=== PATIENT | male | born 1985 | race African-American/Black ===

== ENCOUNTER 2024-12-30 10:16 | Inpatient (IN) | payer MEDICARE, MEDICAID, SELFPAY ==
[2024-12-30] VITALS (26 sets, daily range): BP systolic 78–132; BP diastolic 52–89; PULSE 63–153; RESP 14–18; TEMP 35.7–36.6; O2SAT 93–100; BMI 43.1; BMI 45.1
--- NOTE | 2024-12-30 10:20 | EKG12_ITS ---
Test Reason : Blood Pressure : */* mmHG Vent. Rate : 118 BPM Atrial Rate : 118 BPM P-R Int : 166 ms QRS Dur : 88 ms QT Int : 336 ms P-R-T Axes : 65 65 65 degrees QTcB Int : 470 ms Sinus tachycardia Otherwise normal ECG Confirmed by Adrian Singh ([id number]), pictures editor AD CONNELLY ([id number]) on 12/31/2024 7:54:53 AM Referred By: MATEUS Confirmed By: Adrian Singh
--- NOTE | 2024-12-30 10:20 | RAD_ITS ---
EXAM: XR Chest, 1 View CLINICAL INDICATION: INTUBATION TECHNIQUE: Frontal view of the chest. COMPARISON: No relevant prior studies available. FINDINGS: LUNGS AND PLEURAL SPACES: See below. HEART: Cardiomegaly with mild congestion. MEDIASTINUM: Unremarkable. Normal mediastinal contour. BONES/JOINTS: Unremarkable. No acute fracture. TUBES, LINES AND DEVICES: The endotracheal tube (ETT) is in satisfactory position. Enteric tube tip in the stomach. RAD/Chest 1 View (Portable) IMPRESSION: Cardiomegaly with mild congestion. Reading [facility]
[2024-12-30] MEDS: Etomidate 20 MG/10 ML Vial IV (10:27)
[2024-12-30] MEDS: Succinylcholine Chloride 200 MG/10 ML Vial 100 MG IV (10:28)
--- NOTE | 2024-12-30 10:31 | EDS_ITS ---
HPI History of Present Illness Chief Complaint: Allergic Reaction Detail of Chief Complaint: Angioedema Informant: legal guardian Onset/Context/Timing Onset: Yesterday (Question of slight swelling lower lip yesterday) Context: Sudden Onset (Acutely worse this morning after taking lisinopril.) Timing: Continuous Quality: Angioedema, change in voice, drooling Location: Lips, tongue and uvula/soft palate Current Severity: Severe Maximum Severity: Severe Worsened by: Lisinopril Relieved by: Nothing Associated Symptoms Associated Symptoms: Dysphonia, reported drooling Narrative Narrative: Patient is a 39-year-old male. He has history of type 2 diabetes without insulin and hypertension. He is on lisinopril. He has had change in voice, reported drooling. He abruptly got worse after receiving lisinopril this morning at breakfast. Aide is with him. He has no other complaints. He has no reported allergies. Prior similar symptoms: No Recent Illness/Hospitalization: [facility] [place] [place] Medical History (Updated 12/30/24 @ 12:[address] Dustin Maguire, DO) Schizoaffective disorder, bipolar type Conduct disorder Mood disorder Major depressive disorder Schizophrenia Dementia Vitamin D deficiency Impulse disorder Intermittent explosive disorder Hyperprolactinemia Hyperlipidemia GERD with stricture without esophagitis Anemia Hypertension Asthma Dysphagia Hypothyroidism Irritable bowel Elevated blood pressure reading with diagnosis of hypertension Type 2 diabetes mellitus without complication, with no history of insulin use Home Medications ?Medication ?Instructions ?Recorded ?Last Taken ?Type acetaminophen 325 mg tablet 650 mg PO Q4H PRN fever or pain 12/30/24 Unknown History albuterol sulfate 90 mcg/actuation 1 inh inhalation Q6 H PRN shortness 12/30/24 Unknown History breath activated powder inhaler of breath aspirin 81 mg chewable tablet 1 tab PO DAILY HYPERTENS ION 12/30/24 Unknown History atorvastatin 40 mg tablet 40 mg PO QHS CHOLESTROL 04/0 11/24 Unknown History benztropine 0.5 mg tablet 0.5 mg PO DAILY MOVEMENT DIS ORDER 12/30/24 Unknown History bisacodyl 5 mg tablet,delayed 10 mg PO Q12H PRN consti pation 12/30/24 Unknown History release (Alophen (bisacodyl)) calcium carbonate (Calcium 500) 1,000 mg PO Q4H PRN ac id reflux 12/30/24 Unknown History cholecalciferol (vitamin D3) 125 125 mcg PO DAILY SUPP LEMENT 12/30/24 Unknown History mcg (5,000 unit) capsule cimetidine 200 mg tablet 400 mg PO BID SEXUAL BEHAVIO R 12/30/24 Unknown History divalproex 250 mg tablet,delayed 250 mg PO TID MOOD Unknown History release (Depakote) fluticasone furoate 100 1 inh inhalation DAILY ASTHM A 12/30/24 Unknown History mcg-vilanterol 25 mcg/dose inhalation powder (Breo Ellipta) glucagon 1 mg/0.2 mL subcutaneous 1 mg subcut PRN HYPO GLYCEMIA 12/30/24 Unknown History auto-injector haloperidol 10 mg tablet 10 mg PO QHS SHIZOPHRENIA Unknown History haloperidol decanoate 100 mg/mL 200 mg IM DAILY SCHIZO PHRENIA 12/30/24 Unknown History intramuscular solution (Haldol Decanoate) insulin degludec 200 unit/mL (3 25 unit subcut QHS ALYSSA BETES 12/30/24 Unknown History mL) subcutaneous pen (Tresiba FlexTouch U-200 insulin) levothyroxine 75 mcg tablet 75 mcg PO DAILY HYPOTHYROI DISM 12/30/24 Unknown History (Euthyrox) lisinopril 2.5 mg tablet 2.5 mg PO DAILY HYPERTENSION 12/30/24 Unknown History lorazepam 1 mg tablet (Ativan) 1 mg PO TID MOOD Unknown History lorazepam 2 mg tablet (Ativan) 2 mg PO Q12H PRN agitat ion 12/30/24 Unknown History lorazepam 2 mg/mL injection 1 mg IM Q12H PRN agitation 12/30/24 Unknown History solution medroxyprogesterone 10 mg tablet 10 mg PO DAILY Unknown History (Provera) metformin 1,000 mg tablet 1,000 mg PO BID DIABETES 11/24 Unknown History olanzapine 7.5 mg tablet 7.5 mg PO QHS SCHIZOPHRENIA 12/30/24 Unknown History oxcarbazepine 150 mg tablet 300 mg PO BID BIPOLAR 11/24 Unknown History (Trileptal) semaglutide 2 mg/dose (8 mg/3 mL) 2 mg subcut QWEEK Unknown History subcutaneous pen injector (Ozempic) sertraline 100 mg tablet 200 mg PO DAILY DEPRESSION 0 12/30/24 Unknown History sodium chloride 0.65 % nasal spray 2 spray intranasal Q4H PRN nasal 12/30/24 Unknown History aerosol (Children's Saline Nasal congestion [place]) tuberculin PPD 5 tub. unit/0.1 mL 0.1 ml intradermal . COMPLEX TB 12/30/24 Unknown History intradermal injection solution (Aplisol) ziprasidone HCl 20 mg capsule 20 mg PO Q12H PRN agitat ion 12/30/24 Unknown History (Geodon) Allergy/AdvReac Type Severity Reaction Status Date / Time LUPE Inhibitors Allergy Severe Angioedema Verified 12/30/24 10:34 Family History unable to obtain Surgical History unable to obtain Social History (Updated 12/30/24 @ 10:[address] Chase Torrez MD) housing: other details: snf Smoking Status: Unknown if ever smoked ROS ROS ED Review of Systems ROS Unobtainable: other Details: History limited due to severity of reaction. EXAM Physical Exam Const Vital Signs: 12/30/24 10:20 12/30/24 10:26 12/30/24 10:32 Temperature Temperature Source Pulse Rate 153 H Respiratory Rate 14 Respiratory Depth Normal Respiratory Pattern Normal Blood Pressure Blood Pressure Mean Pulse Ox 100 Oxygen Delivery Method Ambu-Bag Fraction of Inspired Oxygen (FIO2) 40 12/30/24 10:43 12/30/24 10:53 12/30/24 11:16 Temperature 96.2 F L Temperature Source Core Pulse Rate 117 H 87 Respiratory Rate 16 18 Respiratory Depth Respiratory Pattern Normal Blood Pressure 132/89 H Blood Pressure Mean 103 Pulse Ox 95 100 Oxygen Delivery Method Mechanical Ventilator Fraction of Inspired Oxygen (FIO2) 40 12/30/24 11:23 Temperature 96.2 F L Temperature Source Pulse Rate 90 Respiratory Rate 14 Respiratory Depth Respiratory Pattern Blood Pressure 117/88 H Blood Pressure Mean 97 Pulse Ox 99 Oxygen Delivery Method Fraction of Inspired Oxygen (FIO2) Positive well nourished, well developed and obese Constitutional Narrative: Dysphonia, angioedema involving lips, tongue soft palate General Appearance ED: well developed; Negative for cyanotic, diaphoretic or pallor Nutritional Appearance: obese HEENT Reports moist mucous membranes HEENT Narrative: Uvula and soft palate is swollen.. Patient has a Mallampati score of 4 Eyes PERRL and EOMs intact bilaterally General Eye ED: Negative for pale conjunctiva or scleral icterus Neck no lymphadenopathy, supple and no JVD Neck Narrative: Abnormal sounds noted with inspiration. Not true stridor. Chest Wall inspection of chest normal Resp normal respiratory effort and clear to auscultation bilaterally Cardio regular rhythm, S1 normal heart sound, S2 normal heart sound and no murmurs Rate: tachycardic GI normal to inspection, nondistended, normoactive bowel sounds, non-tender and non-distended; Negative for hepatosplenomegaly or no masses Back/Spine no CVA tenderness Extremity General Extremety ED: Yes edema General Extremity: edema Neuro oriented x3 Neuro Narrative: Patient is calm. Sensorium / Orientation: alert Psych mental status grossly normal Skin no rashes or lesions noted, no wounds and skin turgor normal General Skin Exam: elasticity normal; Negative for jaundice or pallor MDM MDM MDM Narrative Medical decision making narrative: Patient with angioedema due to LUPE inhibitor, lisinopril. Patient was prepped for intubation by RSI technique. He was placed on percent nonrebreather. Difficult airway cart was brought into the room. Patient received 20 of etomidate. Attempt to intubate was not attempted because patient's jaw was clenched. He received 100 mg of succinylcholine. He was easily orotracheally intubated. There was no swelling of the epiglottis or aryepiglottic folds etc. Patient was placed on ventilator. He was started on a propofol and fentanyl drip. Once x-ray and EKG has been performed we will contact hospitalist for admission to ICU. Lab Data Lab results narrative: Labs are are pending at the time of admission. Labs: Laboratory Results - last 24 hr 12/30/24 11:15 WBC 6.4 RBC 3.84 L Hgb 10.3 L Hct 30.9 L MCV 80.5 MCH 26.8 L MCHC 33.3 RDW Std Deviation 43.1 RDW Coeff of Jeronimo 14.7 H Plt Count 396 MPV 8.4 Immature Gran % (Auto) 0.600 Neut % (Auto) 55.3 Lymph % (Auto) 29.2 [place] % (Auto) 11.0 H Eos % (Auto) 3.6 Baso % (Auto) 0.3 Absolute Neuts (auto) 3.5 Absolute Lymphs (auto) 1.86 Nucleated RBC % 0 Sodium 131 L Potassium 4.4 Chloride 93 L Carbon Dioxide 25.8 Anion Gap 12 BUN 8 Creatinine 0.65 L Estim Creat Clear Calc 185.05 Est GFR (MDRD) Non-Af 122 BUN/Creatinine Ratio 12.6 Glucose 90 Lactic Acid 2.4 H* Calcium 9.1 Total Bilirubin 0.16 AST 22 ALT 19 Alkaline Phosphatase 115 Total Creatine Kinase 268 H Total Protein 6.9 Albumin 3.6 Globulin 3.3 Albumin/Globulin Ratio 1.1 Triglycerides 106 Radiography Chest X-Ray - ED: 1 View and Read by ED Physician (Single view portable chest x- ray was obtained. Endotracheal tube is 1.5 to 2 cm above the thomas. OG tube is in proper position. There is no need for KUB. This is pending reviewed interpreted by me at 1050. There is no evidence of infiltrate or any acute pulmonary pathology. The film is slight) Diagnostic Testing: Clinical Impression(s) from Imaging Studies Chest X-Ray 12/30/24 10:20 IMPRESSION: Cardiomegaly with mild congestion. Reading Location: [facility] Rhythm Strip Rhythm Strip: Sinus Tach Rate: 128 Ectopy: None EKG Initial EKG: Attestation: I personally reviewed and interpreted this EKG as follows: Interpretation: Sinus Tachycardia (Rate is 118. EKG is otherwise normal. MO interval 266 ms. Cures duration 88 ms. QT duration 236 ms. [place] is normal.) Management Discussion w/another healthcare provider: Hospitalist (Spoke with Dr. Cornelius of the hospitalist. He is made aware of patient's history physical and reason for intubation. Patient be admitted to ICU) and Rehabilitation Team Lead ([employer] Ranger Technician Dr. Maguire did see patient in the emergency department.) Treatment and Re-Evaluation :: I was asked to come back to the room. Patient was vomiting. He did not aspirate. Nurse will place orogastric tube. He was given an additional 40 mg of propofol and chemically paralyzed with rocuronium until we have him properly sedated since he is not properly sedated. The fentanyl drip has not been started. Procedures Intubations Intubation Method: orotracheal Intubation Verification: Positive color change Intubation Complications: no complications Critical Care Time Critical Care Time: Yes Critical care time (excluding procedures): 30-74 minutes (31), Including time spent: (History, physical, documentation, spoke with licensed nurse practitioner who accompanied him. 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
[2024-12-30] MEDS: Propofol 200 MG/20 ML Vial IV BOLUS (10:35)
--- NOTE | 2024-12-30 10:35 | ED.RN ---
Patient attempting to pull at lines.
--- NOTE | 2024-12-30 10:36 | ED.RN ---
bilateral soft restraints applied due to patient attempting to pull at lines. Dr. Torrez notified
[2024-12-30] MEDS: Propofol 10MG/Ml 1,000 MG/100 ML Bottle 7.4 MG CONT INF (10:37)
[2024-12-30] MEDS: Rocuronium Bromide 50 MG/5 ML Vial 100 MG IV (10:50)
[2024-12-30 11:38] LABS: Absolute Lymphocyte Count 1.86 X10^3/uL (0.83-4.51); Absolute Neutrophil Count 3.5 X10^3/uL (2.0-7.7); Basophil# 0.02 X10^3/uL; Basophil% 0.3 % (0-1); Eosinophil# 0.23 X10^3/uL; Eosinophils% 3.6 % (0-5); Hematocrit 30.9 % (40-54); Hemoglobin 10.3 g/dL (13.0-16.5); Lymphocyte # 1.86 X10^3/ul (0.83-4.51); Lymphocyte % 29.2 % (19-41); Mean Corp Hgb Conc 33.3 g/dL (32-36); Mean Corpuscular Hgb 26.8 pg (27.0-32.0); Mean Corpuscular Volume 80.5 fL (80-94); Mean Platelet Vol. 8.4 fl (6.2-12.0); NRBC Flagged by Analyzer 0 % (0-5); Neutrophil # 3.51 X10^3/uL (2.7-7.7); Neutrophil % 55.3 % (47-70); Platelet Count 396 K/mm3 (150-450); RBC Distribution Width CV 14.7 % (11.6-14.6); RBC Distribution Width SD 43.1 fl (35.1-43.9); Red Blood Count 3.84 M/mm3 (4.6-6.2); White Blood Count 6.4 K/mm3 (4.4-11.0)
--- NOTE | 2024-12-30 11:43 | PCM.HP.STD ---
HPI - General General Date of Admission: 12/30/24 Date of Service: 12/30/24 Chief Complaint: Angioedema HPI Narrative ROSENDO MADDEN, is a 39 M with multiple comorbidities including hypertension, diabetes mellitus type 2, morbid obesity with BMI of 43.1 resident seen rust who was brought to the emergency department on account of Lip and facial swelling. Patient symptoms started after taking lisinopril on the morning of his admission. Patient subsequently developed sudden onset of lip and facial pain. The EMS squad was called and patient was transported to the emergency department. Patient apparently did not complain of any shortness of breath and route to the ED however symptoms worsened further in the ED with impending compromise of his airway necessitating patient being intubated. Decision was subsequently made to transfer patient to the intensive care unit following his intubation. [facility] Medical History (Updated 12/30/24 @ 12:[address] Dustin Maguire, DO) Schizoaffective disorder, bipolar type Conduct disorder Mood disorder Major depressive disorder Schizophrenia Dementia Vitamin D deficiency Impulse disorder Intermittent explosive disorder Hyperprolactinemia Hyperlipidemia GERD with stricture without esophagitis Anemia Hypertension Asthma Dysphagia Hypothyroidism Irritable bowel Elevated blood pressure reading with diagnosis of hypertension Type 2 diabetes mellitus without complication, with no history of insulin use Home Medications ?Medication ?Instructions ?Recorded ?Last Taken ?Type acetaminophen 325 mg tablet 650 mg PO Q4H PRN fever or pain 12/30/24 Unknown History albuterol sulfate 90 mcg/actuation 1 inh inhalation Q6H PRN shortness 12/30/24 Unknown History breath activated powder inhaler of breath aspirin 81 mg chewable tablet 1 tab PO DAILY HYPERTENSION 12/30/24 Unknown History atorvastatin 40 mg tablet 40 mg PO QHS CHOLESTROL 12/30/24 Unknown History benztropine 0.5 mg tablet 0.5 mg PO DAILY MOVEMENT DISORDER 12/30/24 Unknown History bisacodyl 5 mg tablet,delayed 10 mg PO Q12H PRN constipation 12/30/24 Unknown History release (Alophen (bisacodyl)) calcium carbonate (Calcium 500) 1,000 mg PO Q4H PRN acid reflux 12/30/24 Unknown History cholecalciferol (vitamin D3) 125 125 mcg PO DAILY SUPPLEMENT 12/30/24 Unknown History mcg (5,000 unit) capsule cimetidine 200 mg tablet 400 mg PO BID SEXUAL BEHAVIOR 12/30/24 Unknown History divalproex 250 mg tablet,delayed 250 mg PO TID MOOD 12/30/24 Unknown History release (Depakote) fluticasone furoate 100 1 inh inhalation DAILY ASTHMA 12/30/24 Unknown History mcg-vilanterol 25 mcg/dose inhalation powder (Breo Ellipta) glucagon 1 mg/0.2 mL subcutaneous 1 mg subcut PRN HYPOGLYCEMIA 12/30/24 Unknown History auto-injector haloperidol 10 mg tablet 10 mg PO QHS SHIZOPHRENIA 12/30/24 Unknown History haloperidol decanoate 100 mg/mL 200 mg IM DAILY SCHIZOPHRENIA 12/30/24 Unknown History intramuscular solution (Haldol Decanoate) insulin degludec 200 unit/mL (3 25 unit subcut QHS DIABETES 12/30/24 Unknown History mL) subcutaneous pen (Tresiba FlexTouch U-200 insulin) levothyroxine 75 mcg tablet 75 mcg PO DAILY HYPOTHYROIDISM 12/30/24 Unknown History (Euthyrox) lisinopril 2.5 mg tablet 2.5 mg PO DAILY HYPERTENSION 12/30/24 Unknown History lorazepam 1 mg tablet (Ativan) 1 mg PO TID MOOD 12/30/24 Unknown History lorazepam 2 mg tablet (Ativan) 2 mg PO Q12H PRN agitation 12/30/24 Unknown History lorazepam 2 mg/mL injection 1 mg IM Q12H PRN agitation 12/30/24 Unknown History solution medroxyprogesterone 10 mg tablet 10 mg PO DAILY 12/30/24 Unknown History (Provera) metformin 1,000 mg tablet 1,000 mg PO BID DIABETES 12/30/24 Unknown History olanzapine 7.5 mg tablet 7.5 mg PO QHS SCHIZOPHRENIA 12/30/24 Unknown History oxcarbazepine 150 mg tablet 300 mg PO BID BIPOLAR 12/30/24 Unknown History (Trileptal) semaglutide 2 mg/dose (8 mg/3 mL) 2 mg subcut QWEEK 12/30/24 Unknown History subcutaneous pen injector (Ozempic) sertraline 100 mg tablet 200 mg PO DAILY DEPRESSION 12/30/24 Unknown History sodium chloride 0.65 % nasal spray 2 spray intranasal Q4H PRN nasal 12/30/24 Unknown History aerosol (Children's Saline Nasal congestion [place]) tuberculin PPD 5 tub. unit/0.1 mL 0.1 ml intradermal .COMPLEX TB 12/30/24 Unknown History intradermal injection solution (Aplisol) ziprasidone HCl 20 mg capsule 20 mg PO Q12H PRN agitation 12/30/24 Unknown History (Geodon) Allergy/AdvReac Type Severity Reaction Status Date / Time LUPE Inhibitors Allergy Severe Angioedema Verified 12/30/24 10:34 Family History unable to obtain Surgical History unable to obtain Social History (Updated 12/30/24 @ 10:[address] Chase Torrez MD) housing: other details: long-term Smoking Status: Unknown if ever smoked ROS ROS Narrative Unable to obtain since patient is on the vent Vital Signs Vital Signs Vital Signs: 12/30/24 10:20 12/30/24 10:26 12/30/24 10:32 Temperature Temperature Source Pulse Rate 153 H Respiratory Rate 14 Respiratory Depth Normal Respiratory Pattern Normal Blood Pressure Blood Pressure Mean Pulse Ox 100 Oxygen Delivery Method Ambu-Bag Fraction of Inspired Oxygen (FIO2) 40 12/30/24 10:43 12/30/24 10:53 12/30/24 11:23 Temperature 96.2 F L 96.2 F L Temperature Source Core Pulse Rate 117 H 90 Respiratory Rate 16 14 Respiratory Depth Respiratory Pattern Normal Blood Pressure 117/88 H Blood Pressure Mean 97 Pulse Ox 95 99 Oxygen Delivery Method Fraction of Inspired Oxygen (FIO2) 40 Weight Weight: 123 kg Body Mass Index (BMI) 43.1 Physical Exam Narrative GENERAL: Patient intubated HEENT: Significant swelling of the face and the lips EYES; Anicteric, Normal Conjunctiva NECK; supple, normal thyroid, RESPIRATORY: Diminished to auscultation CARDIOVASCULAR: Regular S1 S2, GI: soft, normoactive bowel sounds, : No Renal angle tenderness; EXTREMITIES: No edema, no clubbing, MUSCULOSKELETAL: no muscle wasting NEURO: Unable to assess patient underwent SKIN: No Rash PSYCH; patient sedated on the [facility] Results Lab / Micro Data 12/30/24 11:15 12/30/24 11:15 Labs: Laboratory Results - last 24 hr 12/30/24 11:15: WBC 6.4, RBC 3.84 L, Hgb 10.3 L, Hct 30.9 L, MCV 80.5, MCH 26.8 L, MCHC 33.3, RDW Std Deviation 43.1, RDW Coeff of Jeronimo 14.7 H, Plt Count 396, MPV 8.4, Immature Gran % (Auto) 0.600, Neut % (Auto) 55.3, Lymph % (Auto) 29.2, [place] % (Auto) 11.0 H, Eos % (Auto) 3.6, Baso % (Auto) 0.3, Absolute Neuts (auto) 3.5, Absolute Lymphs (auto) 1.86, Nucleated RBC % 0 Rhythm Strip Rhythm Strip: Sinus Tach Rate: 128 Ectopy: None Imaging Radiology Impression Chest X-Ray 12/30/24 10:20 IMPRESSION: Cardiomegaly with mild congestion. Reading Location: [facility] Assessment & Plan Assessment/Plan (1) Angioedema due to angiotensin converting enzyme inhibitor (LUPE-I): PLAN: Plan Patient is a 39-year-old gentleman presented with significant swelling involving the face and lips after taking lisinopril and assessment of angioedema with impending airway failure made patient electively intubated in the emergency department admitted to the intensive care unit for further management 1. Angioedema ? Secondary to LUPE inhibitors. Patient was intubated in the emergency department as a result of impending airway failure. No offending medications discontinued patient started on H2 blockers as well as Solu-Medrol admitted to the intensive care unit. Initial vent settings written consult placed to online program coordinator?Dr Marie case discussed with him 2. Essential hypertension ? Patient was on lisinopril discontinued given the above 3. Schizoaffective disorder ? Plan is to resume patient psychotropic medications once weaned off the vent 4. Class III obesity with BMI of 43.1 complicating care 5. Diabetes mellitus type 2 ? Held patient oral hypoglycemic agents patient is on long-acting insulin. Plan is to continue with sliding scale coverage following med reconciliation 6. Mild intermittent asthma ? Not in exacerbation aerosol treatment as needed 7. Hypothyroidism ? Patient is on levothyroxine home dose continued 8. DVT prophylaxis ? On enoxaparin Time spent in the patient's overall evaluation,decision-making process, review of diagnostic data, adjustment of management, discussion with other providers, nursing nursing and ancillary staff involved in patient's care documentation, 75 Minutes Charges/Coding Visit Charges Inpatient E&M: 85000 Init Hosp L3
[2024-12-30 11:47] LABS: CPK Total, Creatine Kinase 268 U/L (24-195); Triglycerides 106 mg/dL
[2024-12-30 11:48] LABS: ALB/GLOB Ratio 1.1 RATIO (0.9-2.4); AST(SGOT) 22 U/L (<=37); Alanine Aminotransfer ALT/SGPT 19 U/L (<=46); Albumin, Serum 3.6 g/dL (3.5-5.0); Alkaline Phosphatase 115 U/L (40-129); Anion Gap 12 (5-15); BUN 8 mg/dL (4-19); BUN/Creat Ratio 12.6 RATIO (10-20); Calcium,Total 9.1 mg/dL (7.6-11.0); Carbon Dioxide 25.8 mmol/L (21.0-32.0); Chloride 93 mmol/L (98-108); Creatinine, Serum 0.65 mg/dL (0.70-1.20); EST Glomerular Filtration Rate 122 (>60); Estimated Creatinine Clearance 185.05 ml/min (50-250); Globulin 3.3 g/dL (2.2-4.2); Glucose 90 mg/dL (70-99); Potassium 4.4 mmol/L (3.3-5.1); Protein, Total 6.9 g/dL (5.9-8.4); Sodium Level 131 mmol/L (133-145); Total Bilirubin 0.16 mg/dL (0.00-1.30)
[2024-12-30] MEDS: fentaNYL drip 100 ML 2.5 MCG CONT INF (12:05)
--- NOTE | 2024-12-30 12:23 | EX.PCM.CONCC ---
Assessment & Plan Assessment/Plan (1) Angioedema due to angiotensin converting enzyme inhibitor (LUPE-I): PLAN: Plan RECOMMENDATIONS: 1. Continue assist-control mode of mechanical ventilation. Wean FiO2 and PEEP as tolerated. 2. Obtain ABG and sputum culture. 3. Initiate Pepcid and corticosteroids. 4. Propofol and fentanyl for sedation. 5. As needed bronchodilator therapy. 6. Lovenox for DVT prophylaxis. IMPRESSIONS: 1. Acute respiratory failure related to LUPE inhibitor induced angioedema The patient was ultimately intubated in the emergency department over concerns for impending respiratory failure and airway compromise. He will be continued on assist-control mode of mechanical ventilation, with a goal to wean FiO2 and PEEP to maintain saturations at or above 90%. Will plan to obtain arterial blood gas and send sputum for culture. The patient will be maintained on Pepcid and IV steroids as ordered. Once the patient's edema has satisfactorily improved, will initiate weaning from invasive mechanical ventilatory support. 2. History of hypertension/hypothyroidism/diabetes mellitus/asthma/schizoaffective disorder Complicates care, management, recovery and prognosis. Recommend starting as needed bronchodilator therapy along with sliding scale insulin coverage. Tube feeding will be initiated tomorrow for nutritional support, if the patient remains intubated and mechanically ventilated. TIME: 37 minutes of critical care time, independent of procedures, was spent addressing the patient's acute respiratory failure related to LUPE inhibitor induced angioedema, review of all data and collaboration with the care team. HPI Consult Data Date of Consult: 12/30/24 HPI Narrative Reason for Consultation: Acute respiratory failure secondary to angioedema HPI Narrative: The patient is a 39-year-old male, with a history as outlined below, who presented to the emergency department via EMS on December 30 from [facility] after developing facial swelling, in the setting of LUPE inhibitor utilization. History pertinent to the patient's hospitalization was obtained primarily via chart review, as the patient is currently intubated and mechanically ventilated. The patient has a medical history that includes hypothyroidism, asthma, hypertension, diabetes mellitus and schizoaffective disorder. The patient, however, has apparently been on lisinopril for quite some time. On presentation to the emergency department, the patient was documented to be afebrile and hemodynamically stable. Laboratory evaluation revealed a normal white blood cell count with a hemoglobin of 10.3 g/dL and normal platelet count. Creatinine was within normal limits. Lactate was mildly elevated at 2.3. The patient's oropharyngeal edema apparently progressed while he was in the emergency department, raising the concern for airway protection. Therefore, the patient was intubated without complication. The patient was subsequently transferred to the medical intensive care unit for further management. [facility] Medical History (Updated 12/30/24 @ 12:[address] Dustin Maguire, DO) Schizoaffective disorder, bipolar type Conduct disorder Mood disorder Major depressive disorder Schizophrenia Dementia Vitamin D deficiency Impulse disorder Intermittent explosive disorder Hyperprolactinemia Hyperlipidemia GERD with stricture without esophagitis Anemia Hypertension Asthma Dysphagia Hypothyroidism Irritable bowel Elevated blood pressure reading with diagnosis of hypertension Type 2 diabetes mellitus without complication, with no history of insulin use Medical History unable to obtain Home Medications ?Medication ?Instructions ?Recorded ?Last Taken ?Type acetaminophen 325 mg tablet 650 mg PO Q4H PRN fever or pain 12/30/24 Unknown History albuterol sulfate 90 mcg/actuation 1 inh inhalation Q6H PRN shortness 12/30/24 Unknown History breath activated powder inhaler of breath aspirin 81 mg chewable tablet 1 tab PO DAILY HYPERTENSION 12/30/24 Unknown History atorvastatin 40 mg tablet 40 mg PO QHS CHOLESTROL 12/30/24 Unknown History benztropine 0.5 mg tablet 0.5 mg PO DAILY MOVEMENT DISORDER 12/30/24 Unknown History bisacodyl 5 mg tablet,delayed 10 mg PO Q12H PRN constipation 12/30/24 Unknown History release (Alophen (bisacodyl)) calcium carbonate (Calcium 500) 1,000 mg PO Q4H PRN acid reflux 12/30/24 Unknown History cholecalciferol (vitamin D3) 125 125 mcg PO DAILY SUPPLEMENT 12/30/24 Unknown History mcg (5,000 unit) capsule cimetidine 200 mg tablet 400 mg PO BID SEXUAL BEHAVIOR 12/30/24 Unknown History divalproex 250 mg tablet,delayed 250 mg PO TID MOOD 12/30/24 Unknown History release (Depakote) fluticasone furoate 100 1 inh inhalation DAILY ASTHMA 12/30/24 Unknown History mcg-vilanterol 25 mcg/dose inhalation powder (Breo Ellipta) glucagon 1 mg/0.2 mL subcutaneous 1 mg subcut PRN HYPOGLYCEMIA 12/30/24 Unknown History auto-injector haloperidol 10 mg tablet 10 mg PO QHS SHIZOPHRENIA 12/30/24 Unknown History haloperidol decanoate 100 mg/mL 200 mg IM DAILY SCHIZOPHRENIA 12/30/24 Unknown History intramuscular solution (Haldol Decanoate) insulin degludec 200 unit/mL (3 25 unit subcut QHS DIABETES 12/30/24 Unknown History mL) subcutaneous pen (Tresiba FlexTouch U-200 insulin) levothyroxine 75 mcg tablet 75 mcg PO DAILY HYPOTHYROIDISM 12/30/24 Unknown History (Euthyrox) lisinopril 2.5 mg tablet 2.5 mg PO DAILY HYPERTENSION 12/30/24 Unknown History lorazepam 1 mg tablet (Ativan) 1 mg PO TID MOOD 12/30/24 Unknown History lorazepam 2 mg tablet (Ativan) 2 mg PO Q12H PRN agitation 12/30/24 Unknown History lorazepam 2 mg/mL injection 1 mg IM Q12H PRN agitation 12/30/24 Unknown History solution medroxyprogesterone 10 mg tablet 10 mg PO DAILY 12/30/24 Unknown History (Provera) metformin 1,000 mg tablet 1,000 mg PO BID DIABETES 12/30/24 Unknown History olanzapine 7.5 mg tablet 7.5 mg PO QHS SCHIZOPHRENIA 12/30/24 Unknown History oxcarbazepine 150 mg tablet 300 mg PO BID BIPOLAR 12/30/24 Unknown History (Trileptal) semaglutide 2 mg/dose (8 mg/3 mL) 2 mg subcut QWEEK 12/30/24 Unknown History subcutaneous pen injector (Ozempic) sertraline 100 mg tablet 200 mg PO DAILY DEPRESSION 12/30/24 Unknown History sodium chloride 0.65 % nasal spray 2 spray intranasal Q4H PRN nasal 12/30/24 Unknown History aerosol (Children's Saline Nasal congestion [place]) tuberculin PPD 5 tub. unit/0.1 mL 0.1 ml intradermal .COMPLEX TB 12/30/24 Unknown History intradermal injection solution (Aplisol) ziprasidone HCl 20 mg capsule 20 mg PO Q12H PRN agitation 12/30/24 Unknown History (Geodon) Allergy/AdvReac Type Severity Reaction Status Date / Time LUPE Inhibitors Allergy Severe Angioedema Verified 12/30/24 10:34 Family History unable to obtain Surgical History unable to obtain Social History (Updated 12/30/24 @ 10:[address] Chase Torrez MD) housing: other details: half-way Smoking Status: Unknown if ever smoked ROS Review of Systems ROS Unobtainable: due to endotracheal tube Physical Exam Const Constitutional Narrative: Intubated, sedated and mechanically ventilated. Patient is morbidly obese. HEENT normocephalic and head/scalp atraumatic HEENT Narrative: Extensive oropharyngeal/lip edema. Mouth: endotracheal tube in place Eyes PERRL and conjunctivae normal Neck supple General: trachea midline Chest inspection of chest normal Resp no use of accessory muscles Auscultation: Negative for rales, rhonchi or wheezes Cardio regular rate and regular rhythm GI normal to inspection, nondistended, normoactive bowel sounds Extremity no clubbing, cyanosis or edema Skin no rashes or lesions noted Neuro Sensorium / Orientation: sedated on vent Lab / Micro Data 12/30/24 11:15 12/30/24 11:15 Labs: Laboratory Results - last 24 hr 12/30/24 11:15: WBC 6.4, RBC 3.84 L, Hgb 10.3 L, Hct 30.9 L, MCV 80.5, MCH 26.8 L, MCHC 33.3, RDW Std Deviation 43.1, RDW Coeff of Jeronimo 14.7 H, Plt Count 396, MPV 8.4, Immature Gran % (Auto) 0.600, Neut % (Auto) 55.3, Lymph % (Auto) 29.2, [place] % (Auto) 11.0 H, Eos % (Auto) 3.6, Baso % (Auto) 0.3, Absolute Neuts (auto) 3.5, Absolute Lymphs (auto) 1.86, Nucleated RBC % 0, Sodium 131 L, Potassium 4.4, Chloride 93 L, Carbon Dioxide 25.8, Anion Gap 12, BUN 8, Creatinine 0.65 L, Estim Creat Clear Calc 185.05, Est GFR (MDRD) Non-Af 122, BUN/Creatinine Ratio 12.6, Glucose 90, Lactic Acid 2.3 H*, Calcium 9.1, Total Bilirubin 0.16, AST 22, ALT 19, Alkaline Phosphatase 115, Total Creatine Kinase 268 H, Total Protein 6.9, Albumin 3.6, Globulin 3.3, Albumin/Globulin Ratio 1.1, Triglycerides 106 Rhythm Strip Rhythm Strip: Sinus Tach Rate: 128 Ectopy: None Imaging Radiology Impression Chest X-Ray 12/30/24 10:20 IMPRESSION: Cardiomegaly with mild congestion. Reading [facility] Charges/Coding Procedures Hospitalists Procedures: [id number] Critical Care 1st Hr
[2024-12-30 12:33] LABS: Lactic Acid 2.4 mmol/L (0.0-2.0)
[2024-12-30 13:31] LABS: Allen Test Positive; Base Excess 4 mmol/L (-2 to +2); Bicarbonate 27.2 mmol/L (22-26); Blood Gas Specimen Type ART; Mode AC; O2 Delivery Device Adult Vent; PEEP 5; PO2 67 mmHG (75-100); RR 14; SITE L Radial; SO2 94 % (95-99); Total Carbon Dioxide 28 mmol/L; pCO2 36.7 mmHg (35-45); pH 7.48 (7.35-7.45)
[2024-12-30] MEDS: 0.9% Normal Saline (1000mL) 1,000 ML 125 ML IV (13:39)
[2024-12-30] MEDS: Famotidine 200 MG/20 ML MDV 20 MG in 0.9% Normal Saline (Pres. free 8 ML 300 MG IV ×2 (13:49→21:34)
[2024-12-30] MEDS: MethylPREDNISolone 125 MG/2 ML Vial 60 MG IV ×2 (13:49→21:34)
[2024-12-30 14:02] LABS: Bedside Glucose 78 mg/dL (74-106)
[2024-12-30] MEDS: Propofol 10MG/Ml 1,000 MG/100 ML Bottle 18.5 MG CONT INF ×3 (14:58→23:55)
[2024-12-30 15:20] LABS: Reflex Lactate? Y
[2024-12-30 16:38] LABS: Lactic Acid 1.9 mmol/L (0.0-2.0)
[2024-12-30 18:45] LABS: Bedside Glucose 101 mg/dL (74-106)
[2024-12-30] MEDS: fentaNYL drip 100 ML 12.5 MCG CONT INF (20:14)
[2024-12-30] MEDS: Enoxaparin 40 MG/0.4 ML Syringe SC (21:34)
[2024-12-30] MEDS: Chlorhexidine 15 ML PO (21:34)
[2024-12-31] VITALS (32 sets, daily range): BP systolic 101–141; BP diastolic 63–93; PULSE 52–94; RESP 14–16; TEMP 35.6–36.6; O2SAT 57–100; BMI 45.7
[2024-12-31] MEDS: Propofol 10MG/Ml 1,000 MG/100 ML Bottle 29.5 MG CONT INF ×2 (03:41→06:42)
[2024-12-31] MEDS: fentaNYL drip 100 ML 15 MCG CONT INF (03:47)
[2024-12-31 04:15] LABS: Absolute Lymphocyte Count 1.43 X10^3/uL (0.83-4.51); Absolute Neutrophil Count 7.2 X10^3/uL (2.0-7.7); Basophil# 0.02 X10^3/uL; Basophil% 0.2 % (0-1); Eosinophil# 0.01 X10^3/uL; Eosinophils% 0.1 % (0-5); Hematocrit 30.1 % (40-54); Hemoglobin 10.3 g/dL (13.0-16.5); Lymphocyte # 1.43 X10^3/ul (0.83-4.51); Lymphocyte % 15.7 % (19-41); Mean Corp Hgb Conc 34.2 g/dL (32-36); Mean Corpuscular Hgb 26.7 pg (27.0-32.0); Mean Platelet Vol. 8.1 fl (6.2-12.0); Monocyte# 0.39 X10^3/uL; Monocyte% 4.3 % (0-10); NRBC Flagged by Analyzer 0 % (0-5); Neutrophil # 7.23 X10^3/uL (2.7-7.7); Neutrophil % 79.3 % (47-70); Platelet Count 370 K/mm3 (150-450); RBC Distribution Width CV 14.6 % (11.6-14.6); RBC Distribution Width SD 41.1 fl (35.1-43.9); Red Blood Count 3.86 M/mm3 (4.6-6.2); White Blood Count 9.1 K/mm3 (4.4-11.0)
[2024-12-31 05:06] LABS: Magnesium 1.6 mg/dL (1.5-2.2)
[2024-12-31 05:13] LABS: AST(SGOT) 15 U/L (<=37); Alanine Aminotransfer ALT/SGPT 13 U/L (<=46); Albumin, Serum 3.5 g/dL (3.5-5.0); Alkaline Phosphatase 109 U/L (40-129); Anion Gap 12 (5-15); BUN 11 mg/dL (4-19); Bilirubin, Direct < 0.08 mg/dL (0.00-0.30); Calcium,Total 9.1 mg/dL (7.6-11.0); Chloride 96 mmol/L (98-108); Creatinine, Serum 0.59 mg/dL (0.70-1.20); EST Glomerular Filtration Rate 125 (>60); Estimated Creatinine Clearance 209.56 ml/min (50-250); Globulin 3.2 g/dL (2.2-4.2); Glucose 103 mg/dL (70-99); Potassium 4.4 mmol/L (3.3-5.1); Protein, Total 6.7 g/dL (5.9-8.4); Sodium Level 130 mmol/L (133-145); Total Bilirubin 0.17 mg/dL (0.00-1.30)
[2024-12-31 05:26] LABS: Phosphorus 3.5 mg/dL (2.7-4.5)
[2024-12-31] MEDS: MethylPREDNISolone 125 MG/2 ML Vial 60 MG IV ×3 (05:31→22:21)
[2024-12-31] MEDS: 0.9% Normal Saline (1000mL) 1,000 ML 125 ML IV (05:31)
[2024-12-31 06:01] LABS: Bedside Glucose 83 mg/dL (74-106)
[2024-12-31 07:51] LABS: Bedside Glucose 99 mg/dL (74-106)
--- NOTE | 2024-12-31 08:08 | NURSING ---
Per Dr. Maguire increase Propofol 50mcg/kg/min and Fentanyl 200mcg/hr.
--- NOTE | 2024-12-31 08:10 | PN.CC_ITS ---
Assessment & Plan Assessment/Plan (1) Angioedema due to angiotensin converting enzyme inhibitor (LUPE-I): PLAN: Plan RECOMMENDATIONS: 1. Continue assist-control mode of mechanical ventilation. Wean FiO2 and PEEP as tolerated. 2. Continue Pepcid and corticosteroids. 3. Propofol and fentanyl for sedation. 4. Continue as needed bronchodilator therapy. 5. Lovenox for DVT prophylaxis. 6. Okay to initiate tube feeding today. 7. Proceed with spontaneous awakening and breathing trials beginning tomorrow. Check ETT cuff leak as well. IMPRESSIONS: 1. Acute respiratory failure related to LUPE inhibitor induced angioedema The patient was ultimately intubated in the emergency department over concerns for impending respiratory failure and airway compromise. The patient's oropharyngeal edema is improving with supportive care including invasive mechanical ventilatory support, Pepcid and corticosteroids. Plan to continue the aforementioned for now. Given the patient's improvement, anticipate proceeding with spontaneous awakening and breathing trial tomorrow morning. Will check endotracheal tube cuff leak as well. Okay to initiate tube feeding today. 2. History of hypertension/hypothyroidism/diabetes mellitus/asthma/schizoaffective disorder Complicates care, management, recovery and prognosis. Will plan to initiate tube feeding today. Continue sliding scale insulin coverage along with as needed bronchodilator therapy. TIME: 33 minutes of critical care time, independent of procedures, was spent addressing the patient's acute respiratory failure related to LUPE inhibitor induced angioedema, review of all data and collaboration with the care team. Subjective Subjective The patient was seen and examined at the bedside this morning. Events from the last 24 hours have been reviewed. The patient is currently afebrile, hemodynamically stable and maintaining appropriate oxygen saturations on assist- control mode mechanical ventilation with an FiO2 requirement of 21% and PEEP of 5. The patient is currently sedated on a combination of propofol and fentanyl. No overnight issues were identified by the nursing staff. White blood cell count is normal. Creatinine is within normal limits. The patient remains on Pepcid and corticosteroids. Objective Data Objective Data The patient's most recent lab work, culture data and imaging studies have all been personally reviewed. Vital Signs: Vital Signs Temp Pulse Resp BP Pulse Ox O2 Del Method FiO2 97.5 F L 62 14 123/86 H 92 Mechanical Ventilator 21 12/31/24 04:00 12/31/24 07:24 12/31/24 07:24 12/31/24 07:00 12/31/24 07:24 12/31/24 07:00 12/31/24 07:24 Oxygen Delivery Method Mechanical Ventilator Weight: 287 lb 14.779 oz Body Mass Index (BMI) 45.7 Intake & Output: Intake and Output for Last 24 Hours 12/29/24 12/30/24 12/31/24 23:59 23:59 23:59 Intake Total 1376.06 / 1390.10 311.51 / 311.51 Output Total 800 / 800 Balance 1376.06 / 1390.10 -488.49 / -488.49 Lab / Micro Data Attestation: I reviewed the patient's lab results. 12/31/24 04:07 12/31/24 04:07 Labs: Laboratory Results - last 24 hr 12/30/24 11:15: WBC 6.4, RBC 3.84 L, Hgb 10.3 L, Hct 30.9 L, MCV 80.5, MCH 26.8 L, MCHC 33.3, RDW Std Deviation 43.1, RDW Coeff of Jeronimo 14.7 H, Plt Count 396, MPV 8.4, Immature Gran % (Auto) 0.600, Neut % (Auto) 55.3, Lymph % (Auto) 29.2, [place] % (Auto) 11.0 H, Eos % (Auto) 3.6, Baso % (Auto) 0.3, Absolute Neuts (auto) 3.5, Absolute Lymphs (auto) 1.86, Nucleated RBC % 0, Sodium 131 L, Potassium 4.4, Chloride 93 L, Carbon Dioxide 25.8, Anion Gap 12, BUN 8, Creatinine 0.65 L, Estim Creat Clear Calc 185.05, Est GFR (MDRD) Non-Af 122, BUN/Creatinine Ratio 12.6, Glucose 90, Lactic Acid 2.4 H*, Calcium 9.1, Total Bilirubin 0.16, AST 22, ALT 19, Alkaline Phosphatase 115, Total Creatine Kinase 268 H, Total Protein 6.9, Albumin 3.6, Globulin 3.3, Albumin/Globulin Ratio 1.1, Triglycerides 106 12/30/24 13:45: POC Glucose 78 12/30/24 15:28: Lactic Acid 1.9 12/30/24 18:26: POC Glucose 101 12/31/24 00:06: POC Glucose 99 12/31/24 04:07: WBC 9.1, RBC 3.86 L, Hgb 10.3 L, Hct 30.1 L, MCV 78.0 L, MCH 26.7 L, MCHC 34.2, RDW Std Deviation 41.1, RDW Coeff of Jeronimo 14.6, Plt Count 370, MPV 8.1, Immature Gran % (Auto) 0.400, Neut % (Auto) 79.3 H, Lymph % (Auto) 15.7 L, [place] % (Auto) 4.3, Eos % (Auto) 0.1, Baso % (Auto) 0.2, Absolute Neuts (auto) 7.2, Absolute Lymphs (auto) 1.43, Nucleated RBC % 0, Sodium 130 L, Potassium 4.4, Chloride 96 L, Carbon Dioxide 21.0, Anion Gap 12, BUN 11, Creatinine 0.59 L , Estim Creat Clear Calc 209.56, Est GFR (MDRD) Non-Af 125, BUN/Creatinine Ratio 18.0, Glucose 103 H, Calcium 9.1, Phosphorus 3.5, Magnesium 1.6, Total Bilirubin 0.17, Direct Bilirubin < 0.08, AST 15, ALT 13, Alkaline Phosphatase 109, Total Protein 6.7, Albumin 3.5, Globulin 3.2 12/31/24 05:33: POC Glucose 83 Micro: Microbiology 12/30/24 14:40 Wound - Nose Skin and Soft Tissue MRSA/MSSA (PCR - Final Staphylococcus aureus ABG Data ABG results: ABG 12/30/24 13:28 Specimen Type ART Sample Site L Radial pH 7.48 H Bicarbonate Actual 27.2 H Total CO2 28 Base Excess 4 H O2 Saturation 94 L O2 % 25.0 ABG pCO2 36.7 ABG pO2 67 L Cisco Test Positive Respiration Rate 14 O2 Delivery Device Adult Vent Vent Mode AC Tidal Volume 500.0 POC PEEP 5 Radiography Diagnostic Testing: Radiology Impression Chest X-Ray 12/30/24 10:20 IMPRESSION: Cardiomegaly with mild congestion. Reading Location: [facility] Rhythm Strip Rhythm Strip: Sinus Tach Rate: 128 Ectopy: None Physical Exam Const Constitutional Narrative: Intubated, sedated and mechanically ventilated. Patient is morbidly obese. No ventilator dyssynchrony noted. HEENT normocephalic and head/scalp atraumatic HEENT Narrative: Improving oropharyngeal edema. Mouth: endotracheal tube in place and OG tube in place Eyes PERRL and conjunctivae normal Neck supple General: trachea midline Chest inspection of chest normal Resp no use of accessory muscles Auscultation: Negative for rales, rhonchi or wheezes Cardio regular rate and regular rhythm GI normal to inspection, nondistended, normoactive bowel sounds Extremity no clubbing, cyanosis or edema Skin no rashes or lesions noted Neuro Sensorium / Orientation: sedated on vent Charges/Coding Procedures Hospitalists Procedures: [id number] Critical Care 1st Hr
--- NOTE | 2024-12-31 08:57 | PN.HOSP_ITS ---
Reason for Visit Reason for Visit: Diagnoses Adverse effect of sbjrcdkzcce-hrklbattbm-htzjek inhibitors, initial encounter (12/30/24) Angioneurotic edema, initial encounter (12/30/24) Subjective Subjective Patient is a 39-year-old gentleman presented with significant swelling involving the face and lips after taking lisinopril and assessment of angioedema with impending airway failure made patient electively intubated in the emergency department admitted to the intensive care unit for further management. Patient remains on the vent with significant decrease in his swelling Objective Data Objective Data Vital Signs: Vital Signs Temp Pulse Resp BP Pulse Ox O2 Del Method FiO2 97.7 F L 57 L 14 138/89 H 93 Mechanical Ventilator 21 12/31/24 08:00 12/31/24 08:00 12/31/24 08:00 12/31/24 08:00 12/31/24 08:00 12/31/24 08:35 12/31/24 08:35 Oxygen Delivery Method Mechanical Ventilator Weight: 130.6 kg Body Mass Index (BMI) 45.7 Intake & Output: Intake and Output for Last 24 Hours 12/29/24 12/30/24 12/31/24 23:59 23:59 23:59 Intake Total 1376.06 / 1390.10 393.70 / 393.70 Output Total 800 / 800 Balance 1376.06 / 1390.10 -406.30 / -406.30 Lab / Micro Data 12/31/24 04:07 12/31/24 04:07 Labs: Laboratory Results - last 24 hr 12/30/24 11:15: WBC 6.4, RBC 3.84 L, Hgb 10.3 L, Hct 30.9 L, MCV 80.5, MCH 26.8 L, MCHC 33.3, RDW Std Deviation 43.1, RDW Coeff of Jeronimo 14.7 H, Plt Count 396, MPV 8.4, Immature Gran % (Auto) 0.600, Neut % (Auto) 55.3, Lymph % (Auto) 29.2, [place] % (Auto) 11.0 H, Eos % (Auto) 3.6, Baso % (Auto) 0.3, Absolute Neuts (auto) 3.5, Absolute Lymphs (auto) 1.86, Nucleated RBC % 0, Sodium 131 L, Potassium 4.4, Chloride 93 L, Carbon Dioxide 25.8, Anion Gap 12, BUN 8, Creatinine 0.65 L, Estim Creat Clear Calc 185.05, Est GFR (MDRD) Non-Af 122, BUN/Creatinine Ratio 12.6, Glucose 90, Lactic Acid 2.4 H*, Calcium 9.1, Total Bilirubin 0.16, AST 22, ALT 19, Alkaline Phosphatase 115, Total Creatine Kinase 268 H, Total Protein 6.9, Albumin 3.6, Globulin 3.3, Albumin/Globulin Ratio 1.1, Triglycerides 106 12/30/24 13:45: POC Glucose 78 12/30/24 15:28: Lactic Acid 1.9 12/30/24 18:26: POC Glucose 101 12/31/24 00:06: POC Glucose 99 12/31/24 04:07: WBC 9.1, RBC 3.86 L, Hgb 10.3 L, Hct 30.1 L, MCV 78.0 L, MCH 26.7 L, MCHC 34.2, RDW Std Deviation 41.1, RDW Coeff of Jeronimo 14.6, Plt Count 370, MPV 8.1, Immature Gran % (Auto) 0.400, Neut % (Auto) 79.3 H, Lymph % (Auto) 15.7 L, [place] % (Auto) 4.3, Eos % (Auto) 0.1, Baso % (Auto) 0.2, Absolute Neuts (auto) 7.2, Absolute Lymphs (auto) 1.43, Nucleated RBC % 0, Sodium 130 L, Potassium 4.4, Chloride 96 L, Carbon Dioxide 21.0, Anion Gap 12, BUN 11, Creatinine 0.59 L , Estim Creat Clear Calc 209.56, Est GFR (MDRD) Non-Af 125, BUN/Creatinine Ratio 18.0, Glucose 103 H, Calcium 9.1, Phosphorus 3.5, Magnesium 1.6, Total Bilirubin 0.17, Direct Bilirubin < 0.08, AST 15, ALT 13, Alkaline Phosphatase 109, Total Protein 6.7, Albumin 3.5, Globulin 3.2 12/31/24 05:33: POC Glucose 83 Micro: Microbiology 12/30/24 14:40 Wound - Nose Skin and Soft Tissue MRSA/MSSA (PCR - Final Staphylococcus aureus ABG Data ABG results: ABG 12/30/24 13:28 Specimen Type ART Sample Site L Radial pH 7.48 H Bicarbonate Actual 27.2 H Total CO2 28 Base Excess 4 H O2 Saturation 94 L O2 % 25.0 ABG pCO2 36.7 ABG pO2 67 L Cisco Test Positive Respiration Rate 14 O2 Delivery Device Adult Vent Vent Mode AC Tidal Volume 500.0 POC PEEP 5 Radiography Diagnostic Testing: Radiology Impression Chest X-Ray 12/30/24 10:20 IMPRESSION: Cardiomegaly with mild congestion. Reading Location: [facility] Rhythm Strip Rhythm Strip: Sinus Tach Rate: 128 Ectopy: None Physical Exam Narrative GENERAL: Patient intubated HEENT: Significant swelling of the face and the lips EYES; Anicteric, Normal Conjunctiva NECK; supple, normal thyroid, RESPIRATORY: Diminished to auscultation CARDIOVASCULAR: Regular S1 S2, GI: soft, normoactive bowel sounds, : No Renal angle tenderness; EXTREMITIES: No edema, no clubbing, MUSCULOSKELETAL: no muscle wasting NEURO: Unable to assess patient underwent SKIN: No Rash PSYCH; patient sedated on the vent Assessment & Plan Assessment/Plan (1) Angioedema due to angiotensin converting enzyme inhibitor (LUPE-I): PLAN: Plan Patient is a 39-year-old gentleman presented with significant swelling involving the face and lips after taking lisinopril and assessment of angioedema with impending airway failure made patient electively intubated in the emergency department admitted to the intensive care unit for further management 1. Angioedema ? Secondary to LUPE inhibitors. Patient was intubated in the emergency department as a result of impending airway failure. No offending medications discontinued patient started on H2 blockers as well as Solu-Medrol admitted to the intensive care unit. Initial vent settings written consult placed to uniform force captain?Dr Maguire case discussed with him -12/31/2024; patient remains on the vent. Plan is for patient to be maintained on the vent with steroid and H2 blockers. Decision to initiate weaning deferred to uniform force captain. 2. Essential hypertension ? Patient was on lisinopril discontinued given the above 3. Schizoaffective disorder ? Plan is to resume patient psychotropic medications once weaned off the vent 4. Class III obesity with BMI of 43.1 complicating care 5. Diabetes mellitus type 2 ? Held patient oral hypoglycemic agents patient is on long-acting insulin. Plan is to continue with sliding scale coverage following med reconciliation 6. Mild intermittent asthma ? Not in exacerbation aerosol treatment as needed 7. Hypothyroidism ? Patient is on levothyroxine home dose continued 8. Anemia ? Secondary to chronic disorder monitoring H&H and transfuse if patient becomes symptomatic or hemoglobin falls below 7 9. Mild hyponatremia ? Monitoring with daily BMPs 10. DVT prophylaxis ? On enoxaparin Time spent in the patient's overall evaluation,decision-making process, review of diagnostic data, adjustment of management, discussion with other providers, nursing nursing and ancillary staff involved in patient's care documentation, 52 Minutes Charges/Coding Visit Charges Inpatient E&M: 94263 [facility] L3
--- NOTE | 2024-12-31 09:28 | CASEMGMT ---
Addendum entered by Valarie Stratton 12/31/24 10:11: Guardianship papers received and placed on pt chart. Guardian is Micaela Bennett. TAMEKA Viera Original Note: Social Work Pt is admitted from [facility]. SAMMIE called pt legal Guardian Micaela Bennett who confirmed pt will return when medically ready. SAMMIE requested Guardianship papers be sent to [facility]. DC assistant financial accountant notified to send updates to [facility]. Plan: Return to [facility] when medically ready TAMEKA Hanna
--- NOTE | 2024-12-31 09:36 | CASEMGMT ---
Addendum entered by Isi Valentine 12/31/24 10:02: Fax confirmation rec'd. Isi Valentine DC Planning Asst Original Note: Discharge Planning Updates faxed to [facility]. Isi Valentine DC Planning Asst.
[2024-12-31] MEDS: Propofol 10MG/Ml 1,000 MG/100 ML Bottle 36.9 MG CONT INF ×6 (09:39→22:29)
[2024-12-31] MEDS: fentaNYL drip 100 ML 20 MCG CONT INF ×3 (10:07→20:00)
[2024-12-31] MEDS: Famotidine 200 MG/20 ML MDV 20 MG in 0.9% Normal Saline (Pres. free 8 ML 300 MG IV ×2 (10:07→22:24)
[2024-12-31] MEDS: Chlorhexidine 15 ML PO ×2 (10:10→22:28)
[2024-12-31] MEDS: Enoxaparin 40 MG/0.4 ML Syringe SC ×2 (10:10→22:23)
[2024-12-31 11:40] LABS: Bedside Glucose 100 mg/dL (74-106)
--- NOTE | 2024-12-31 11:46 | CHAPLAIN ---
Type of Pastoral Visit ___ Initial Visit ___ Follow-up Visit ___ On-call Visit ___ General Patient Visit ___ Spiritual Assessment ___ Family Conference ___ Bereavement ___ Rapid Response ___ Code Blue ___ Other (describe below) Pastoral Care Referral From ___ Patient ___ Family ___ Nurse ___ Physician ___ Master Carpenter ___ Pressurization Mechanic ___ Other (describe below) Sacrament/Intervention ___ Active listening ___ Anointing ___ Cheondoism ___ Bereavement ___ Communion ___ Maddi exploration ___ ___ Life review ___ Prayer ___ Reconciliation ___ Sacrament of Sick ___ Supportive presence ___ Wedding ___ Other (describe below) Pastoral Comments patient is intubated and sedated; RN recommended waiting until tomorrow to visit this patient who may be extubated and alert then
[2024-12-31] MEDS: Vital High Protein 1,000 ML 15 ML GT (11:47)
[2024-12-31] MEDS: Albuterol 2.5 MG/3 ML VIAL.NEB. INHALATION (13:02)
--- NOTE | 2024-12-31 13:10 | RAD_ITS ---
PROCEDURE: CHEST 1 VIEW (PORTABLE) 12/31/2024 REASON FOR EXAM: ETT PLACEMENT TECHNIQUE: Frontal view of the chest. COMPARISON: Comparison is made with prior study dated December 30, 2024. FINDINGS: Hardware: The tip of the endotracheal tube is at 2.4 cm proximal to the thomas. EKG electrodes are seen. The orogastric tube is in good position. Heart: Cardiac and mediastinal contours are stable. Lungs: Findings suggestive of left basilar atelectasis and/or infiltrate. Bones: Degenerative changes are identified within the thoracic spine. Other: RAD/Chest 1 View (Portable) IMPRESSION: The tip of the endotracheal tube is at 2.4 cm proximal to the thomas. Orogastr ic tube is in good position. Increased markings at the left lung base suggestive of either atelectasis and/o r early infiltrate. Reading Location: [place] [id number]
[2024-12-31 18:47] LABS: Bedside Glucose 108 mg/dL (74-106)
--- NOTE | 2024-12-31 21:56 | PCM.HOSP.N ---
Hospitalist Note Patient recently started on tube feeds, having large residuals per discussion with staff, will trial scheduled Reglan to assist with gut motility
[2024-12-31] MEDS: 0.9% Saline Lock 10 ML Syringe IV (22:24)
[2024-12-31] MEDS: Metoclopramide 10 MG/2 ML Vial 5 MG IV (22:32)
[2025-01-01] VITALS (33 sets, daily range): BP systolic 101–150; BP diastolic 63–91; PULSE 57–94; RESP 14–17; TEMP 36.2–37.4; O2SAT 91–97; BMI 45.5
[2025-01-01] MEDS: Propofol 10MG/Ml 1,000 MG/100 ML Bottle 36.9 MG CONT INF ×3 (00:35→05:46)
[2025-01-01 01:59] LABS: Bedside Glucose 105 mg/dL (74-106)
[2025-01-01] MEDS: fentaNYL drip 100 ML 20 MCG CONT INF ×4 (02:00→19:23)
[2025-01-01] MEDS: MethylPREDNISolone 125 MG/2 ML Vial 60 MG IV ×3 (06:00→21:38)
[2025-01-01] MEDS: 0.9% Saline Lock 10 ML Syringe IV (06:01)
[2025-01-01] MEDS: Metoclopramide 10 MG/2 ML Vial 5 MG IV ×3 (06:03→21:43)
[2025-01-01 06:13] LABS: Absolute Lymphocyte Count 1.38 X10^3/uL (0.83-4.51); Basophil# 0.01 X10^3/uL; Basophil% 0.1 % (0-1); Hematocrit 30.2 % (40-54); Hemoglobin 10.2 g/dL (13.0-16.5); Lymphocyte # 1.38 X10^3/ul (0.83-4.51); Lymphocyte % 13.7 % (19-41); Mean Corp Hgb Conc 33.8 g/dL (32-36); Mean Corpuscular Hgb 26.9 pg (27.0-32.0); Mean Corpuscular Volume 79.7 fL (80-94); Mean Platelet Vol. 8.4 fl (6.2-12.0); Monocyte# 0.63 X10^3/uL; Monocyte% 6.3 % (0-10); NRBC Flagged by Analyzer 0 % (0-5); Neutrophil # 7.97 X10^3/uL (2.7-7.7); Neutrophil % 79.1 % (47-70); Platelet Count 420 K/mm3 (150-450); RBC Distribution Width CV 15.3 % (11.6-14.6); RBC Distribution Width SD 44.2 fl (35.1-43.9); Red Blood Count 3.79 M/mm3 (4.6-6.2); White Blood Count 10.1 K/mm3 (4.4-11.0)
[2025-01-01 06:48] LABS: Anion Gap 13 (5-15); BUN 9 mg/dL (4-19); BUN/Creat Ratio 15.7 RATIO (10-20); Calcium,Total 9.3 mg/dL (7.6-11.0); Carbon Dioxide 19.6 mmol/L (21.0-32.0); Chloride 99 mmol/L (98-108); EST Glomerular Filtration Rate 125 (>60); Estimated Creatinine Clearance 206.98 ml/min (50-250); Glucose 102 mg/dL (70-99); Potassium 4.3 mmol/L (3.3-5.1); Sodium Level 132 mmol/L (133-145)
[2025-01-01 06:51] LABS: Bedside Glucose 97 mg/dL (74-106)
--- NOTE | 2025-01-01 07:35 | PN.CC_ITS ---
Assessment & Plan Assessment/Plan (1) Angioedema due to angiotensin converting enzyme inhibitor (LUPE-I): PLAN: Plan RECOMMENDATIONS: 1. Continue assist-control mode of mechanical ventilation. Wean FiO2 and PEEP as tolerated. 2. Continue Pepcid and corticosteroids. 3. Propofol and fentanyl for sedation. 4. Continue as needed bronchodilator therapy. 5. Lovenox for DVT prophylaxis. 6. Continue tube feeding as tolerated. 7. Repeat ABG and chest x-ray tomorrow morning. 8. Repeat spontaneous awakening and breathing trial tomorrow morning. IMPRESSIONS: 1. Acute respiratory failure related to LUPE inhibitor induced angioedema The patient was ultimately intubated in the emergency department over concerns for impending respiratory failure and airway compromise. The patient's oropharyngeal edema is improving with supportive care including invasive mechanical ventilatory support, Pepcid and corticosteroids. Plan to continue the aforementioned for now. Plan to continue nutritional support via tube feeding for now. Plan for daily paired spontaneous awakening and breathing trials. 2. History of hypertension/hypothyroidism/diabetes mellitus/asthma/schizoaffective disorder Complicates care, management, recovery and prognosis. Continue tube feeding as tolerated. Continue sliding scale insulin coverage along with as needed bronchodilator therapy. TIME: 32 minutes of critical care time, independent of procedures, was spent addressing the patient's acute respiratory failure related to LUPE inhibitor induced angioedema, review of all data and collaboration with the care team. Subjective Subjective The patient was seen and examined at the bedside this morning. Events from the last 24 hours have been reviewed. The patient is currently afebrile, hemodynamically stable and maintaining appropriate oxygen saturations on assist- control mode mechanical ventilation with an FiO2 requirement of 30% and PEEP of 5. No overnight events were noted by the nursing staff. The patient has been tolerant of tube feeding. He remains sedated on propofol and fentanyl. White blood cell count is normal. Hemoglobin and platelet count are stable. Upon completing a spontaneous awakening trial this morning, the patient was noted to desaturate into the mid 80s. He has not had any significant endotracheal tube secretions. Breathing trial was not commenced on account of this. The patient did have a notable endotracheal tube cuff leak when checked this morning. Objective Data Objective Data The patient's most recent lab work, culture data and imaging studies have all been personally reviewed. Vital Signs: Vital Signs Temp Pulse Resp BP Pulse Ox O2 Del Method FiO2 98.2 F 62 14 110/68 94 Mechanical Ventilator 30 04/04/25 07:00 01/01/25 07:00 01/01/25 07:00 01/01/25 07:00 01/01/25 07:00 01/01/25 07:00 01/01/25 06:53 Oxygen Delivery Method Mechanical Ventilator Weight: 286 lb 13.142 oz Body Mass Index (BMI) 45.5 Intake & Output: Intake and Output for Last 24 Hours 12/30/24 12/31/24 01/01/25 23:59 23:59 23:59 Intake Total 1376.06 / 1390.10 2423.72 / 2466.62 429.11 / 429.11 Output Total 2875 / 2975 745 / 745 Balance 1376.06 / 1390.10 -451.28 / -508.38 -315.89 / -315.89 Lab / Micro Data Attestation: I reviewed the patient's lab results. 01/01/25 05:45 01/01/25 05:45 Labs: Laboratory Results - last 24 hr 12/31/24 00:06: POC Glucose 99 12/31/24 11:22: POC Glucose 100 12/31/24 18:27: POC Glucose 108 H 01/01/25 00:32: POC Glucose 105 01/01/25 05:45: WBC 10.1, RBC 3.79 L, Hgb 10.2 L, Hct 30.2 L, MCV 79.7 L, MCH 26.9 L, MCHC 33.8, RDW Std Deviation 44.2 H, RDW Coeff of Jeronimo 15.3 H, Plt Count 420, MPV 8.4, Immature Gran % (Auto) 0.800, Neut % (Auto) 79.1 H, Lymph % (Auto) 13.7 L, [place] % (Auto) 6.3, Eos % (Auto) 0.0, Baso % (Auto) 0.1, Absolute Neuts (auto) 8.0 H, Absolute Lymphs (auto) 1.38, Nucleated RBC % 0, Sodium 132 L, Potassium 4.3, Chloride 99, Carbon Dioxide 19.6 L, Anion Gap 13, BUN 9, C reatinine 0.60 L, Estim Creat Clear Calc 206.98, Est GFR (MDRD) Non-Af 125, BUN/Creatinine Ratio 15.7, Glucose 102 H, Calcium 9.3 01/01/25 05:56: POC Glucose 97 Micro: Microbiology 12/30/24 14:40 Wound - Nose Skin and Soft Tissue MRSA/MSSA (PCR - Final Staphylococcus aureus ABG Data ABG results: ABG 12/30/24 13:28 Specimen Type ART Sample Site L Radial pH 7.48 H Bicarbonate Actual 27.2 H Total CO2 28 Base Excess 4 H O2 Saturation 94 L O2 % 25.0 ABG pCO2 36.7 ABG pO2 67 L Cisco Test Positive Respiration Rate 14 O2 Delivery Device Adult Vent Vent Mode AC Tidal Volume 500.0 POC PEEP 5 Radiography Diagnostic Testing: Radiology Impression Chest X-Ray 12/31/24 13:10 IMPRESSION: The tip of the endotracheal tube is at 2.4 cm proximal to the thomas. Orogastric tube is in good position. Increased markings at the left lung base suggestive of either atelectasis and/or early infiltrate. Reading Location: [facility] Rhythm Strip Rhythm Strip: Sinus Tach Rate: 128 Ectopy: None Physical Exam Const Constitutional Narrative: Intubated, sedated and mechanically ventilated. Patient is morbidly obese. No ventilator dyssynchrony noted. HEENT normocephalic and head/scalp atraumatic HEENT Narrative: Near complete resolution of the previously noted oropharyngeal edema. Mouth: endotracheal tube in place and OG tube in place Eyes PERRL and conjunctivae normal Neck supple General: trachea midline Chest inspection of chest normal Resp no use of accessory muscles Auscultation: Negative for rales, rhonchi or wheezes Cardio regular rate and regular rhythm GI normal to inspection, nondistended, normoactive bowel sounds Extremity no clubbing, cyanosis or edema Skin no rashes or lesions noted Neuro Sensorium / Orientation: sedated on vent Charges/Coding Procedures Hospitalists Procedures: 93008 Critical Care 1st Hr
--- NOTE | 2025-01-01 08:41 | PN.HOSP_ITS ---
Reason for Visit Reason for Visit: Diagnoses Adverse effect of hwavmtdxoev-mygnolzeww-tpwkoq inhibitors, initial encounter (12/30/24) Angioneurotic edema, initial encounter (12/30/24) Subjective Subjective Patient seen remains on the vent easily arousable despite patient being on max sedation. Objective Data Objective Data Vital Signs: Vital Signs Temp Pulse Resp BP Pulse Ox O2 Del Method FiO2 98.2 F 62 14 110/68 94 Mechanical Ventilator 30 01/01/25 07:00 01/01/25 07:00 01/01/25 07:00 01/01/25 07:00 01/01/25 07:00 01/01/25 08:00 01/01/25 08:00 Oxygen Delivery Method Mechanical Ventilator Weight: 130.1 kg Body Mass Index (BMI) 45.5 Intake & Output: Intake and Output for Last 24 Hours 12/30/24 12/31/24 01/01/25 23:59 23:59 23:59 Intake Total 1376.06 / 1390.10 2423.72 / 2466.62 429.11 / 429.11 Output Total 2875 / 2975 745 / 745 Balance 1376.06 / 1390.10 -451.28 / -508.38 -315.89 / -315.89 Lab / Micro Data 01/01/25 05:45 01/01/25 05:45 Labs: Laboratory Results - last 24 hr 12/31/24 11:22: POC Glucose 100 12/31/24 18:27: POC Glucose 108 H 01/01/25 00:32: POC Glucose 105 01/01/25 05:45: WBC 10.1, RBC 3.79 L, Hgb 10.2 L, Hct 30.2 L, MCV 79.7 L, MCH 26.9 L, MCHC 33.8, RDW Std Deviation 44.2 H, RDW Coeff of Jeronimo 15.3 H, Plt Count 420, MPV 8.4, Immature Gran % (Auto) 0.800, Neut % (Auto) 79.1 H, Lymph % (Auto) 13.7 L, [place] % (Auto) 6.3, Eos % (Auto) 0.0, Baso % (Auto) 0.1, Absolute Neuts (auto) 8.0 H, Absolute Lymphs (auto) 1.38, Nucleated RBC % 0, Sodium 132 L, Potassium 4.3, Chloride 99, Carbon Dioxide 19.6 L, Anion Gap 13, BUN 9, C reatinine 0.60 L, Estim Creat Clear Calc 206.98, Est GFR (MDRD) Non-Af 125, BUN/Creatinine Ratio 15.7, Glucose 102 H, Calcium 9.3 01/01/25 05:56: POC Glucose 97 Micro: Microbiology 12/30/24 14:40 Wound - Nose Skin and Soft Tissue MRSA/MSSA (PCR - Final Staphylococcus aureus Radiography Diagnostic Testing: Radiology Impression Chest X-Ray 12/31/24 13:10 IMPRESSION: The tip of the endotracheal tube is at 2.4 cm proximal to the thomas. Orogastric tube is in good position. Increased markings at the left lung base suggestive of either atelectasis and/or early infiltrate. Reading Location: [facility] Rhythm Strip Rhythm Strip: Sinus Tach Rate: 128 Ectopy: None Physical Exam Narrative GENERAL: Patient intubated HEENT: Significant swelling of the face and the lips EYES; Anicteric, Normal Conjunctiva NECK; supple, normal thyroid, RESPIRATORY: Diminished to auscultation CARDIOVASCULAR: Regular S1 S2, GI: soft, normoactive bowel sounds, : No Renal angle tenderness; EXTREMITIES: No edema, no clubbing, MUSCULOSKELETAL: no muscle wasting NEURO: Unable to assess patient underwent SKIN: No Rash PSYCH; patient sedated on the vent Assessment & Plan Assessment/Plan (1) Angioedema due to angiotensin converting enzyme inhibitor (LUPE-I): PLAN: Plan Patient is a 39-year-old gentleman presented with significant swelling involving the face and lips after taking lisinopril and assessment of angioedema with impending airway failure made patient electively intubated in the emergency department admitted to the intensive care unit for further management 1. Angioedema ? Secondary to LUPE inhibitors. Patient was intubated in the emergency department as a result of impending airway failure. No offending medications discontinued patient started on H2 blockers as well as Solu-Medrol admitted to the intensive care unit. Initial vent settings written consult placed to integrated circuit layout designer?Dr Maguire case discussed with him -12/31/2024; patient remains on the vent. Plan is for patient to be maintained on the vent with steroid and H2 blockers. Decision to initiate weaning deferred to integrated circuit layout designer. ? 01/01/2025;Patient seen remains on the vent easily arousable despite patient being on max sedation. 2. Essential hypertension ? Patient was on lisinopril discontinued given the above 3. Schizoaffective disorder ? Plan is to resume patient psychotropic medications once weaned off the vent 4. Class III obesity with BMI of 43.1 complicating care 5. Diabetes mellitus type 2 ? Held patient oral hypoglycemic agents patient is on long-acting insulin. Plan is to continue with sliding scale coverage following med reconciliation 6. Mild intermittent asthma ? Not in exacerbation aerosol treatment as needed 7. Hypothyroidism ? Patient is on levothyroxine home dose continued 8. Anemia ? Secondary to chronic disorder monitoring H&H and transfuse if patient becomes symptomatic or hemoglobin falls below 7 9. Mild hyponatremia ? Monitoring with daily BMPs ? 01/01/2025; sodium levels up to 132 10. DVT prophylaxis ? On enoxaparin Time spent in the patient's overall evaluation,decision-making process, review of diagnostic data, adjustment of management, discussion with other providers, nursing nursing and ancillary staff involved in patient's care documentation, 38 minutes Charges/Coding Visit Charges Inpatient E&M: 19822 Subs Hosp L2
[2025-01-01] MEDS: TITRATION PARAMETER CHANGE 1 EACH IV (09:26)
[2025-01-01] MEDS: Propofol 10MG/Ml 1,000 MG/100 ML Bottle 39 MG CONT INF ×6 (09:26→21:37)
[2025-01-01] MEDS: Enoxaparin 40 MG/0.4 ML Syringe SC ×2 (09:30→21:37)
[2025-01-01] MEDS: Famotidine 200 MG/20 ML MDV 20 MG in 0.9% Normal Saline (Pres. free 8 ML 300 MG IV ×2 (09:34→21:38)
[2025-01-01] MEDS: Chlorhexidine 15 ML PO ×2 (09:35→21:43)
--- NOTE | 2025-01-01 10:14 | CASEMGMT ---
Discharge Planning Updates faxed to D[facility] with note that pt will be here through weekend. Isi Valentine DC Planning Asst.
--- NOTE | 2025-01-01 11:33 | CHAPLAIN ---
Type of Pastoral Visit _x__ Initial Visit ___ Follow-up Visit ___ On-call Visit ___ General Patient Visit ___ Spiritual Assessment ___ Family Conference ___ Bereavement ___ Rapid Response ___ Code Blue ___ Other (describe below) Pastoral Care Referral From ___ Patient ___ Family ___ Nurse ___ Physician ___ Receiving Dock Checker ___ Supervisor Smoke Control _x__ Other (describe below) Sacrament/Intervention ___ Active listening ___ Anointing ___ Quaker ___ Bereavement ___ Communion ___ Maddi exploration ___ ___ Life review _x__ Prayer ___ Reconciliation ___ Sacrament of Sick ___ Supportive presence ___ Wedding ___ Other (describe below) Pastoral Comments checked on this patient both and Saturday; pt remains on the vent and is resting calmly; RN is asked about his status; this snuff grinder and screener goes into room and offers prayer; left a calling card to acknowledge the support given when patient is able to know it
[2025-01-01 12:02] LABS: Bedside Glucose 102 mg/dL (74-106)
[2025-01-01] MEDS: Vital High Protein 1,000 ML 35 ML GT (16:09)
[2025-01-01 20:52] LABS: Bedside Glucose 115 mg/dL (74-106)
[2025-01-02] VITALS (37 sets, daily range): BP systolic 93–127; BP diastolic 49–83; PULSE 59–89; RESP 12–15; TEMP 36.9–37.4; O2SAT 93–100; BMI 45.4
[2025-01-02] MEDS: Propofol 10MG/Ml 1,000 MG/100 ML Bottle 39 MG CONT INF ×6 (02:15→11:59)
[2025-01-02 02:48] LABS: Bedside Glucose 98 mg/dL (74-106)
[2025-01-02 05:01] LABS: Base Excess 0 mmol/L (-2 to +2); Bicarbonate 24.6 mmol/L (22-26); Blood Gas Specimen Type ART; Mode AC; O2 Delivery Device Adult Vent; PEEP 5; PO2 81 mmHG (75-100); RR 14; SITE L Radial; SO2 96 % (95-99); Total Carbon Dioxide 26 mmol/L; pCO2 37.9 mmHg (35-45); pH 7.42 (7.35-7.45)
[2025-01-02 05:04] LABS: Absolute Lymphocyte Count 1.68 X10^3/uL (0.83-4.51); Absolute Neutrophil Count 6.8 X10^3/uL (2.0-7.7); Basophil# 0.02 X10^3/uL; Basophil% 0.2 % (0-1); Eosinophil# 0.01 X10^3/uL; Eosinophils% 0.1 % (0-5); Hematocrit 30.1 % (40-54); Lymphocyte # 1.68 X10^3/ul (0.83-4.51); Lymphocyte % 18.1 % (19-41); Mean Corp Hgb Conc 33.2 g/dL (32-36); Mean Corpuscular Volume 81.1 fL (80-94); Mean Platelet Vol. 8.4 fl (6.2-12.0); Monocyte# 0.67 X10^3/uL; Monocyte% 7.2 % (0-10); NRBC Flagged by Analyzer 0 % (0-5); Neutrophil # 6.79 X10^3/uL (2.7-7.7); Neutrophil % 73.3 % (47-70); Platelet Count 420 K/mm3 (150-450); RBC Distribution Width CV 15.7 % (11.6-14.6); RBC Distribution Width SD 46.1 fl (35.1-43.9); Red Blood Count 3.71 M/mm3 (4.6-6.2); White Blood Count 9.3 K/mm3 (4.4-11.0)
[2025-01-02 05:35] LABS: Anion Gap 12 (5-15); BUN 13 mg/dL (4-19); BUN/Creat Ratio 19.3 RATIO (10-20); Calcium,Total 9.2 mg/dL (7.6-11.0); Carbon Dioxide 20.9 mmol/L (21.0-32.0); Chloride 104 mmol/L (98-108); Creatinine, Serum 0.65 mg/dL (0.70-1.20); EST Glomerular Filtration Rate 121 (>60); Estimated Creatinine Clearance 190.89 ml/min (50-250); Glucose 106 mg/dL (70-99); Potassium 4.5 mmol/L (3.3-5.1); Sodium Level 137 mmol/L (133-145)
--- NOTE | 2025-01-02 05:35 | RAD_ITS ---
PROCEDURE: CHEST 1 VIEW (PORTABLE) 01/02/2025 REASON FOR EXAM: RESPIRAOTRY FAILURE TECHNIQUE: Frontal view of the chest. COMPARISON: 12/31/2024 FINDINGS: Endotracheal tube and nasogastric tube again noted. Low lung volume study. The lungs appear clear. Cardiac silhouette unchanged in size. RAD/Chest 1 View (Portable) IMPRESSION: Endotracheal tube and nasogastric tube again noted. Low lung volume study. Th e lungs appear clear. Reading Location: [id number]
[2025-01-02] MEDS: fentaNYL drip 100 ML 20 MCG CONT INF ×3 (06:49→11:59)
--- NOTE | 2025-01-02 07:20 | PN.HOSP_ITS ---
Reason for Visit Reason for Visit: Diagnoses Adverse effect of lhagmtokzas-bcigoneehs-popsfw inhibitors, initial encounter (12/30/24) Angioneurotic edema, initial encounter (12/30/24) Subjective Subjective Patient seen remains on the vent. Plan is for patient to be started on his psychotropic medications prior to attempt at weaning. Patient psychotropic medication subsequently ordered Objective Data Objective Data Vital Signs: Vital Signs Temp Pulse Resp BP Pulse Ox O2 Del Method FiO2 98.7 F 66 14 102/59 L 97 Mechanical Ventilator 35 01/02/25 07:00 01/02/25 07:05 01/02/25 07:05 01/02/25 07:00 01/02/25 07:05 01/02/25 07:00 01/02/25 07:05 Oxygen Delivery Method Mechanical Ventilator Weight: 129.9 kg Body Mass Index (BMI) 45.4 Intake & Output: Intake and Output for Last 24 Hours 12/31/24 01/01/25 01/02/25 23:59 23:59 23:59 Intake Total 2423.72 / 2466.62 2203.03 / 2262.03 434.92 / 434.92 Output Total 2875 / 2975 2820 / 3095 1125 / 1125 Balance -451.28 / -508.38 -616.97 / -832.97 -690.08 / -690.08 Lab / Micro Data 01/02/25 04:45 01/02/25 04:45 Labs: Laboratory Results - last 24 hr 01/01/25 11:36: POC Glucose 102 01/01/25 18:54: POC Glucose 115 H 01/02/25 00:46: POC Glucose 98 01/02/25 04:45: WBC 9.3, RBC 3.71 L, Hgb 10.0 L, Hct 30.1 L, MCV 81.1, MCH 27.0, MCHC 33.2, RDW Std Deviation 46.1 H, RDW Coeff of Jeronimo 15.7 H, Plt Count 420, MPV 8.4, Immature Gran % (Auto) 1.100 H, Neut % (Auto) 73.3 H, Lymph % (Auto) 18.1 L , [place] % (Auto) 7.2, Eos % (Auto) 0.1, Baso % (Auto) 0.2, Absolute Neuts (auto) 6.8, Absolute Lymphs (auto) 1.68, Nucleated RBC % 0, Sodium 137, Potassium 4.5, Chloride 104, Carbon Dioxide 20.9 L, Anion Gap 12, BUN 13, Creatinine 0.65 L, Estim Creat Clear Calc 190.89, Est GFR (MDRD) Non-Af 121, BUN/Creatinine Ratio 19.3, Glucose 106 H, Calcium 9.2 Micro: Microbiology 12/30/24 12:40 Sputum, Induced/Lukens Gram Stain - Final 12/30/24 12:40 Sputum, Induced/Lukens Respiratory Culture - Preliminary Beta hemolytic organism 12/30/24 14:40 Wound - Nose Skin and Soft Tissue MRSA/MSSA (PCR - Final Staphylococcus aureus ABG Data ABG results: ABG 01/02/25 04:58 Specimen Type ART Sample Site L Radial pH 7.42 Bicarbonate Actual 24.6 Total CO2 26 Base Excess 0 O2 Saturation 96 O2 % 35.0 ABG pCO2 37.9 ABG pO2 81 Cisco Test N/A Respiration Rate 14 O2 Delivery Device Adult Vent Vent Mode AC Tidal Volume 500.0 POC PEEP 5 Radiography Diagnostic Testing: Radiology Impression Chest X-Ray 01/02/25 05:35 IMPRESSION: Endotracheal tube and nasogastric tube again noted. Low lung volume study. The lungs appear clear. Reading Location: [facility] Rhythm Strip Rhythm Strip: Sinus Tach Rate: 128 Ectopy: None Physical Exam Narrative GENERAL: Patient intubated HEENT: Significant swelling of the face and the lips EYES; Anicteric, Normal Conjunctiva NECK; supple, normal thyroid, RESPIRATORY: Diminished to auscultation CARDIOVASCULAR: Regular S1 S2, GI: soft, normoactive bowel sounds, : No Renal angle tenderness; EXTREMITIES: No edema, no clubbing, MUSCULOSKELETAL: no muscle wasting NEURO: Unable to assess patient underwent SKIN: No Rash PSYCH; patient sedated on the vent Assessment & Plan Assessment/Plan (1) Angioedema due to angiotensin converting enzyme inhibitor (LUPE-I): PLAN: Plan Patient is a 39-year-old gentleman presented with significant swelling involving the face and lips after taking lisinopril and assessment of angioedema with impending airway failure made patient electively intubated in the emergency department admitted to the intensive care unit for further management 1. Angioedema ? Secondary to LUPE inhibitors. Patient was intubated in the emergency department as a result of impending airway failure. No offending medications discontinued patient started on H2 blockers as well as Solu-Medrol admitted to the intensive care unit. Initial vent settings written consult placed to district commercial superintendent?Dr Maguire case discussed with him -12/31/2024; patient remains on the vent. Plan is for patient to be maintained on the vent with steroid and H2 blockers. Decision to initiate weaning deferred to district commercial superintendent. ? 01/01/2025;Patient seen remains on the vent easily arousable despite patient being on max sedation. ? 01/02/2025; Patient seen remains on the vent. Plan is for patient to be started on his psychotropic medications prior to attempt at weaning. Patient psychotropic medication subsequently ordered 2. Essential hypertension ? Patient was on lisinopril discontinued given the above 3. Schizoaffective disorder ? Plan is to resume patient psychotropic medications once weaned off the vent 4. Class III obesity with BMI of 43.1 complicating care 5. Diabetes mellitus type 2 ? Held patient oral hypoglycemic agents patient is on long-acting insulin. Plan is to continue with sliding scale coverage following med reconciliation 6. Mild intermittent asthma ? Not in exacerbation aerosol treatment as needed 7. Hypothyroidism ? Patient is on levothyroxine home dose continued 8. Anemia ? Secondary to chronic disorder monitoring H&H and transfuse if patient becomes symptomatic or hemoglobin falls below 7 9. Mild hyponatremia ? Monitoring with daily BMPs ? 01/01/2025; sodium levels up to 132 10. DVT prophylaxis ? On enoxaparin Time spent in the patient's overall evaluation,decision-making process, review of diagnostic data, adjustment of management, discussion with other providers, nursing nursing and ancillary staff involved in patient's care documentation, 38 minutes Charges/Coding Visit Charges Inpatient E&M: 29249 Subs Hosp L2
[2025-01-02] MEDS: MethylPREDNISolone 125 MG/2 ML Vial 60 MG IV ×3 (07:25→21:54)
[2025-01-02] MEDS: Metoclopramide 10 MG/2 ML Vial 5 MG IV ×3 (07:26→21:54)
[2025-01-02] MEDS: Chlorhexidine 15 ML PO ×2 (07:31→21:55)
[2025-01-02] MEDS: Enoxaparin 40 MG/0.4 ML Syringe SC ×2 (07:31→21:54)
[2025-01-02] MEDS: CHLORHEXIDINE GLUC 2% CLOTH 1 EACH TOWELETTE TOPICAL (07:31)
[2025-01-02] MEDS: 0.9% Saline Lock 10 ML Syringe IV ×3 (07:32→21:58)
[2025-01-02] MEDS: Famotidine 200 MG/20 ML MDV 20 MG in 0.9% Normal Saline (Pres. free 8 ML 300 MG IV ×2 (07:32→21:30)
[2025-01-02] MEDS: TITRATION PARAMETER CHANGE 1 EACH IV (07:46)
--- NOTE | 2025-01-02 09:21 | PN.CC_ITS ---
Objective Data Objective Data Vital Signs: Vital Signs Last response 3 Temperature 37.2 C 01/02/25 09:00 Temperature Source Core 01/02/25 09:00 Pulse Rate 59 L 01/02/25 09:02 Pulse Strength Normal (2+) 01/02/25 07:58 Respiratory Rate 14 01/02/25 09:02 Respiratory Effort Mechanically Ventilated 01/02/25 08:00 Respiratory Depth Normal 01/01/25 16:00 Respiratory Pattern Normal 01/01/25 16:00 Blood Pressure 104/67 01/02/25 09:00 Blood Pressure Mean 79 01/02/25 09:00 Blood Pressure Source Monitor 01/02/25 09:00 Blood Pressure Position Semi-Fowlers 01/02/25 09:00 Blood Pressure Location Left Arm 01/02/25 09:00 Pulse Ox 96 01/02/25 09:02 Oxygen Delivery Method Mechanical Ventilator 01/02/25 09:00 Fraction of Inspired Oxygen (FIO2) 35 01/02/25 09:02 I&O: I&O Last 24 Hours 3 01/01/25 01/01/25 01/02/25 11:59 23:59 11:59 Intake Total 907.67 / 2262.03 1295.36 / 2262.03 503.17 / 503.17 Output Total 745 / 3095 2075 / 3095 1200 / 1200 Balance 162.67 / -832.97 -779.64 / -832.97 -696.83 / -696.83 I&O: Total Stay 3 12/30/24 10:16 thru 01/02/25 08:00 Intake Total 6505.98 Output Total 6895 Balance -389.02 Current Meds Ordered / Administered: Current meds ordered / Administered 3 Generic Name Dose Route Start Last Admin Trade Name Freq PRN Reason Stop Dose Admin Albuterol Sulfate 2.5 mg 12/30/24 12:43 12/31/24 13:02 Albuterol 2.5 Mg/3 Ml Vial.Neb. INHALATION 2.5 mg Q2H PRN PRN Administration DYSPNEA/WHEEZING/SOB Chlorhexidine Gluconate 15 ml 12/30/24 22:00 01/02/25 07:31 Chlorhexidine 15 Ml PO 15 ml BID SHAHID Administration Chlorhexidine Gluconate 1 each 01/02/25 10:00 01/02/25 07:31 Chlorhexidine Gluc 2% Cloth 1 Each [place] TOPICAL 1 each DAILY SHAHID Administration Enoxaparin Sodium 40 mg 12/30/24 22:00 01/02/25 07:31 Enoxaparin 40 Mg/0.4 Ml Syringe SC 40 mg BID SHAHID Administration Glucagon 1 mg 12/30/24 12:43 Glucagon 1 Mg/Ml Syringe IM X1 PRN HYPOGLYCEMIA Protocol Fentanyl 100 mls @ 2.5 mls/hr 12/30/24 10:20 01/02/25 08:00 CONT INF 200 mcg/hr UD SHAHID 20 mls/hr Titration Protocol 25 MCG/HR Dextrose 250 mls @ 0 mls/hr 12/30/24 12:43 Dextrose 10%-Water IV .Q0M PRN HYPOGLYCEMIA Protocol As Directed Famotidine 20 mg/ Sodium 10 mls @ 300 mls/hr 12/30/24 12:43 01/02/25 07:53 Chloride IV Infused Q12 SHAHID Infusion Sodium Chloride 100 mls @ 15 mls/hr 12/30/24 12:50 IV .Q6H40M PRN Saline Flush Sodium Chloride 100 mls @ 15 mls/hr 12/30/24 12:50 IV .Q6H40M PRN Additional IVPB Infusion Enteral Nutritional Formula 1,000 mls @ 35 mls/hr 12/31/24 11:15 01/01/25 16:09 Vital High Protein GT 35 mls/hr .[id number] SHAHID Administration Propofol 1,000 mg in 100 mls @ 7.794 mls/hr 01/01/25 08:05 01/02/25 08:00 Diprivan CONT INF 50 mcg/kg/min .Q12H SHAHID 39 mls/hr Titration Protocol 10 MCG/KG/MIN Insulin Human Lispro 0 unit 12/30/24 12:43 01/02/25 07:23 Insulin Lispro 100 Unit/Ml Insuln.Pen SC Not Given Q6 SHAHID Protocol Methylprednisolone 60 mg 12/30/24 14:00 01/02/25 07:25 Methylprednisolone 125 Mg/2 Ml Vial IV 60 mg Q8 SHAHID Administration Metoclopramide HCl 5 mg 12/31/24 22:00 01/02/25 07:26 Metoclopramide 10 Mg/2 Ml Vial IV 5 mg Q8 SHAHID Administration Prochlorperazine Edisylate 5 mg 12/30/24 12:43 Prochlorperazine 10 Mg/2 Ml Vial IV Q4H PRN PRN Breakthrough Nausea/Vomiting Sodium Chloride 10 - 40 ml 12/30/24 12:50 01/02/25 07:32 0.9% Saline Lock 10 Ml Syringe IV 20 ml UD PRN Administration SALINE FLUSH Lab / Micro Data 01/02/25 04:45 01/02/25 04:45 Labs: Laboratory Results - last 24 hr 01/01/25 11:36: POC Glucose 102 01/01/25 18:54: POC Glucose 115 H 01/02/25 00:46: POC Glucose 98 01/02/25 04:45: WBC 9.3, RBC 3.71 L, Hgb 10.0 L, Hct 30.1 L, MCV 81.1, MCH 27.0, MCHC 33.2, RDW Std Deviation 46.1 H, RDW Coeff of Jeronimo 15.7 H, Plt Count 420, MPV 8.4, Immature Gran % (Auto) 1.100 H, Neut % (Auto) 73.3 H, Lymph % (Auto) 18.1 L , [place] % (Auto) 7.2, Eos % (Auto) 0.1, Baso % (Auto) 0.2, Absolute Neuts (auto) 6.8, Absolute Lymphs (auto) 1.68, Nucleated RBC % 0, Sodium 137, Potassium 4.5, Chloride 104, Carbon Dioxide 20.9 L, Anion Gap 12, BUN 13, Creatinine 0.65 L, Estim Creat Clear Calc 190.89, Est GFR (MDRD) Non-Af 121, BUN/Creatinine Ratio 19.3, Glucose 106 H, Calcium 9.2 Micro: Microbiology 12/30/24 12:40 Sputum, Induced/Lukens Gram Stain - Final 12/30/24 12:40 Sputum, Induced/Lukens Respiratory Culture - Preliminary Beta hemolytic organism ABG Data ABG results: ABG 01/02/25 04:58 Specimen Type ART Sample Site L Radial pH 7.42 Bicarbonate Actual 24.6 Total CO2 26 Base Excess 0 O2 Saturation 96 O2 % 35.0 ABG pCO2 37.9 ABG pO2 81 Cisco Test N/A Respiration Rate 14 O2 Delivery Device Adult Vent Vent Mode AC Tidal Volume 500.0 POC PEEP 5 Rhythm Strip Rhythm Strip: Sinus Tach Rate: 128 Ectopy: None Imaging Radiology Impression Chest X-Ray 01/02/25 05:35 IMPRESSION: Endotracheal tube and nasogastric tube again noted. Low lung volume study. The lungs appear clear. Reading Location: [facility] Assessment and Plan . Assessment and plan: Subjective: No acute events o/n. Having worsening thick ETT secretions overnight, also with low grade temps Physical Exam: Gen - NAD, obese, intubated HEENT - MMM. ETT in place. OP swelling much improved by report Resp - Diminished in bases. Breathing nonlabored CV - RRR. No m/g/r Abd - Soft, NT, ND Ext - No c/c/e. Skin - No rashes? Neuro - Sedated, intubated I have reviewed the pertinent vital sign, laboratory, and imaging data. ASSESSMENT: # Acute hypoxic respiratory failure # LUPE-induced angioedema # Asthma # Schizoaffective disorder # DM # HTN # Hypothyroidism PLAN: -Cont VC vent 500/14/5/35%. Follow ABG/CXR -Hold off on extubation today given significant increase in ETT secretions. Will re-evaluate tmrw if improved -IV steroids, pepcid. Angioedema seems to be improving, cuff leak present. -Start IV cefazolin for now given MSSA nasal PCR positive and sputum positive for strep agalactiae. f/u final Cx results. Obtain BCx, UA, procal -Add nebs/mucomyst, CPT, mucinex -Cont home psych meds -SSI, monitor CBGs FEN/GI: TF Proph DVT/GI: Lovenox, pepcid Critical Care Time: 50 mins The entirety of this encounter was done via telemedicine using both audio and video. Consent was unable to be obtained for the telemedicine encounter due to the patient's mental status.
[2025-01-02 10:45] LABS: Mucous, Urine 0 SEEN /hpf (<or=2+); Squamous Epithelial Cells - UA 0 SEEN /hpf (0-5)
[2025-01-02 10:47] LABS: Color, Urine Yellow (Yellow); Glucose, Dipstick Normal (Normal); Ketone-Dipstick Negative (Negative); Leukocyte Esterase-Dipstick 500 /ul (Negative); Nitrite-Dipstick Positive (Negative); Occult Blood-Urine 250 /ul (Negative); Protein-Dipstick 30 mg/dl (Negative); Urine Bilirubin Dipstick Negative (Negative); Urine Clarity Cloudy (Clear); Urine Urobilinogen Normal (Normal)
[2025-01-02 10:53] LABS: Red Blood Cells-Urine > 100 SEEN /hpf (0-5); White Blood Cells 0-5 SEEN /hpf (0-5)
[2025-01-02 10:54] LABS: Bacteria 3+ /hpf (None Seen)
[2025-01-02 11:14] LABS: Procalcitonin < 0.02 ng/mL (<=0.10)
[2025-01-02] MEDS: OXcarbazepine 300 MG Tablet GT ×2 (11:20→21:54)
[2025-01-02] MEDS: MEDROXYPROGESTERONE ACETATE 10 MG TABLET NG (11:20)
[2025-01-02 11:45] LABS: Bedside Glucose 110 mg/dL (74-106)
[2025-01-02] MEDS: LORazepam 1 MG Tablet NG ×2 (13:58→21:53)
[2025-01-02] MEDS: Divalproex Sodium 250 MG Tablet PO (13:58)
[2025-01-02] MEDS: guaiFENesin 10 ML UDC (200MG/10ML) 20 ML PO ×2 (13:59→21:54)
[2025-01-02] MEDS: Cefazolin 2 GM in Syringe IV ×2 (14:01→21:40)
[2025-01-02] MEDS: Albuterol 2.5 MG/3 ML VIAL.NEB. INHALATION ×2 (14:25→18:39)
[2025-01-02] MEDS: Acetylcysteine 800 MG/4 ML VIAL.NEB. INHALATION ×2 (14:25→18:38)
[2025-01-02] MEDS: Propofol 10MG/Ml 1,000 MG/100 ML Bottle 27.3 MG CONT INF (15:04)
[2025-01-02] MEDS: fentaNYL drip 100 ML 17.5 MCG CONT INF ×2 (17:30→23:13)
[2025-01-02 17:42] LABS: Bedside Glucose 107 mg/dL (74-106)
[2025-01-02] MEDS: Propofol 10MG/Ml 1,000 MG/100 ML Bottle 31.2 MG CONT INF ×2 (18:18→21:31)
[2025-01-02] MEDS: Vital High Protein 1,000 ML 35 ML GT (21:40)
[2025-01-02] MEDS: OLANZapine 2.5 MG Tablet 7.5 MG PO (21:53)
[2025-01-02] MEDS: Haloperidol 5 MG Tablet 10 MG PO (21:53)
[2025-01-02] MEDS: Valproate Sodium 250 MG in Dextrose 5%-Water (50mL Bag) 50 ML 50 MG IV (21:59)
[2025-01-02 23:44] LABS: Bedside Glucose 104 mg/dL (74-106)
[2025-01-03] VITALS (40 sets, daily range): BP systolic 95–173; BP diastolic 58–99; PULSE 59–92; RESP 14–20; TEMP 36.5–37.2; O2SAT 92–97; BMI 45.5
[2025-01-03] MEDS: Propofol 10MG/Ml 1,000 MG/100 ML Bottle 31.2 MG CONT INF ×2 (00:23→03:36)
[2025-01-03] MEDS: Acetylcysteine 800 MG/4 ML VIAL.NEB. INHALATION ×4 (00:56→18:59)
[2025-01-03] MEDS: Albuterol 2.5 MG/3 ML VIAL.NEB. INHALATION ×4 (00:56→18:59)
[2025-01-03] MEDS: fentaNYL drip 100 ML 17.5 MCG CONT INF ×2 (04:56→11:00)
[2025-01-03 05:09] LABS: Allen Test Positive; Base Excess 0 mmol/L (-2 to +2); Blood Gas Specimen Type ART; Mode AC; O2 Delivery Device Adult Vent; PEEP 5; PO2 87 mmHG (75-100); RR 14; SITE R Radial; SO2 96 % (95-99); Total Carbon Dioxide 28 mmol/L; pCO2 50.2 mmHg (35-45); pH 7.32 (7.35-7.45)
--- NOTE | 2025-01-03 05:20 | RAD_ITS ---
PROCEDURE: CHEST 1 VIEW (PORTABLE) 01/03/2025 REASON FOR EXAM: RESP FAILURE, INTUBATED TECHNIQUE: Frontal view of the chest. COMPARISON: Chest x-ray dated 01/02/2025. FINDINGS: Endotracheal tube is present with tip at the level of the clavicular heads approximately 5 cm from the thomas. This may be advanced if clinically indicated. The cardiac silhouette is stable in size. Dense retrocardiac/left lower lobe airspace opacities present obscuring the contour of the left hemidiaphragm. This may be due to atelectasis or other etiologies. Aeration within the left lower lobe is slightly improved when compared to prior examination. The right lung and left upper lung zone appear clear. There is no pneumothorax. There are no acute osseous abnormalities present. An enteric tube is identified with tip within the left upper abdominal quadrant. RAD/Chest 1 View (Portable) IMPRESSION: As above. Reading Location: [id number]
[2025-01-03 05:22] LABS: Absolute Lymphocyte Count 2.36 X10^3/uL (0.83-4.51); Absolute Neutrophil Count 8.4 X10^3/uL (2.0-7.7); Basophil# 0.03 X10^3/uL; Basophil% 0.2 % (0-1); Eosinophil# 0.01 X10^3/uL; Eosinophils% 0.1 % (0-5); Hematocrit 31.6 % (40-54); Hemoglobin 10.4 g/dL (13.0-16.5); Lymphocyte # 2.36 X10^3/ul (0.83-4.51); Lymphocyte % 19.6 % (19-41); Mean Corp Hgb Conc 32.9 g/dL (32-36); Mean Corpuscular Hgb 26.9 pg (27.0-32.0); Mean Corpuscular Volume 81.9 fL (80-94); Mean Platelet Vol. 8.4 fl (6.2-12.0); Monocyte# 1.06 X10^3/uL; Monocyte% 8.8 % (0-10); NRBC Flagged by Analyzer 0.2 % (0-5); Neutrophil # 8.44 X10^3/uL (2.7-7.7); Platelet Count 442 K/mm3 (150-450); RBC Distribution Width CV 15.6 % (11.6-14.6); RBC Distribution Width SD 46.3 fl (35.1-43.9); Red Blood Count 3.86 M/mm3 (4.6-6.2); White Blood Count 12.1 K/mm3 (4.4-11.0)
[2025-01-03] MEDS: guaiFENesin 10 ML UDC (200MG/10ML) 20 ML PO (05:23)
[2025-01-03] MEDS: Valproate Sodium 250 MG in Dextrose 5%-Water (50mL Bag) 50 ML 50 MG IV ×3 (05:23→22:10)
[2025-01-03] MEDS: Cefazolin 2 GM in Syringe IV ×3 (05:23→21:24)
[2025-01-03] MEDS: 0.9% Saline Lock 10 ML Syringe IV ×4 (05:23→16:57)
[2025-01-03] MEDS: LORazepam 1 MG Tablet NG ×3 (05:23→21:27)
[2025-01-03] MEDS: MethylPREDNISolone 125 MG/2 ML Vial 60 MG IV (05:25)
[2025-01-03] MEDS: Metoclopramide 10 MG/2 ML Vial 5 MG IV ×3 (05:25→21:24)
[2025-01-03] MEDS: Levothyroxine 75 MCG Tablet NG (05:50)
[2025-01-03 05:51] LABS: Bedside Glucose 89 mg/dL (74-106)
[2025-01-03 06:17] LABS: Anion Gap 14 (5-15); BUN 15 mg/dL (4-19); BUN/Creat Ratio 21.4 RATIO (10-20); Calcium,Total 9.4 mg/dL (7.6-11.0); Carbon Dioxide 20.1 mmol/L (21.0-32.0); Chloride 98 mmol/L (98-108); Creatinine, Serum 0.68 mg/dL (0.70-1.20); EST Glomerular Filtration Rate 120 (>60); Estimated Creatinine Clearance 182.55 ml/min (50-250); Glucose 110 mg/dL (70-99); Potassium 4.2 mmol/L (3.3-5.1); Sodium Level 132 mmol/L (133-145)
--- NOTE | 2025-01-03 07:30 | PN.HOSP_ITS ---
Reason for Visit Reason for Visit: Diagnoses Adverse effect of psgpgayqayr-tfaasivukf-xpkhud inhibitors, initial encounter (12/30/24) Angioneurotic edema, initial encounter (12/30/24) Subjective Subjective Patient seen, remains on the vent. Patient tracheal aspirates came back positive for Streptococcus agalactiae Chest x-ray obtained due to Dense retrocardiac/left lower lobe airspace opacities present obscuring the contour of the left hemidiaphragm. Patient was started on cefazolin by telemetry ICU. Objective Data Objective Data Vital Signs: Vital Signs Temp Pulse Resp BP Pulse Ox O2 Del Method FiO2 97.7 F L 75 14 129/80 H 93 Mechanical Ventilator 01/03/25 04:00 01/03/25 07:00 01/03/25 07:00 01/03/25 07:00 01/03/25 07:00 01/03/25 07:00 01/03/25 07:00 Oxygen Delivery Method Mechanical Ventilator Weight: 130 kg Body Mass Index (BMI) 45.5 Intake & Output: Intake and Output for Last 24 Hours 01/01/25 01/02/25 01/03/25 23:59 23:59 23:59 Intake Total 2203.03 / 2262.03 2830.78 / 2875.69 441.34 / 441.34 Output Total 2820 / 3095 2275 / 2275 650 / 650 Balance -616.97 / -832.97 555.78 / 600.69 -208.66 / -208.66 Lab / Micro Data 01/03/25 05:10 01/03/25 05:10 Labs: Laboratory Results - last 24 hr 01/02/25 10:30: Procalcitonin < 0.02, Urine Color Yellow, Urine Clarity Cloudy, Urine pH 7.0, Ur Specific [place] 1.010, Urine Protein 30 H, Urine Glucose (UA) Normal, Urine Ketones Negative, Urine Occult Blood 250 H, Urine Nitrite Positive H, Urine Bilirubin Negative, Urine Urobilinogen Normal, Ur Leukocyte Esterase 500 H, Urine RBC > 100 SEEN, Urine WBC 0-5 SEEN, Ur Squamous Epith Cells 0 SEEN, Urine Bacteria 3+, Urine Mucus 0 SEEN 01/02/25 11:25: POC Glucose 110 H 01/02/25 17:23: POC Glucose 107 H 01/02/25 23:24: POC Glucose 104 01/03/25 05:10: WBC 12.1 H, RBC 3.86 L, Hgb 10.4 L, Hct 31.6 L, MCV 81.9, MCH 26.9 L, MCHC 32.9, RDW Std Deviation 46.3 H, RDW Coeff of Jeronimo 15.6 H, Plt Count 442, MPV 8.4, Immature Gran % (Auto) 1.300 H, Neut % (Auto) 70.0, Lymph % (Auto) 19.6, [place] % (Auto) 8.8, Eos % (Auto) 0.1, Baso % (Auto) 0.2, Absolute Neuts (auto) 8.4 H, Absolute Lymphs (auto) 2.36, Nucleated RBC % 0.2, Sodium 132 L, Potassium 4.2, Chloride 98, Carbon Dioxide 20.1 L, Anion Gap 14, BUN 15, C reatinine 0.68 L, Estim Creat Clear Calc 182.55, Est GFR (MDRD) Non-Af 120, B UN/Creatinine Ratio 21.4 H, Glucose 110 H, Calcium 9.4 01/03/25 05:22: POC Glucose 89 Micro: Microbiology 12/30/24 12:40 Sputum, Induced/Lukens Gram Stain - Final 12/30/24 12:40 Sputum, Induced/Lukens Respiratory Culture - Preliminary Streptococcus agalactiae (B) 12/30/24 14:40 Wound - Nose Skin and Soft Tissue MRSA/MSSA (PCR - Final Staphylococcus aureus ABG Data ABG results: ABG 01/03/25 05:05 Specimen Type ART Sample Site R Radial pH 7.32 L Bicarbonate Actual 26.0 Total CO2 28 Base Excess 0 O2 Saturation 96 O2 % 25.0 ABG pCO2 50.2 H ABG pO2 87 Cisco Test Positive Respiration Rate 14 O2 Delivery Device Adult Vent Vent Mode AC Tidal Volume 500.0 POC PEEP 5 Radiography Diagnostic Testing: Radiology Impression Chest X-Ray 01/03/25 05:20 IMPRESSION: As above. Reading Location: [facility] Rhythm Strip Rhythm Strip: Sinus Tach Rate: 128 Ectopy: None Physical Exam Narrative GENERAL: Patient intubated HEENT: Significant swelling of the face and the lips EYES; Anicteric, Normal Conjunctiva NECK; supple, normal thyroid, RESPIRATORY: Diminished to auscultation CARDIOVASCULAR: Regular S1 S2, GI: soft, normoactive bowel sounds, : No Renal angle tenderness; EXTREMITIES: No edema, no clubbing, MUSCULOSKELETAL: no muscle wasting NEURO: Unable to assess patient underwent SKIN: No Rash PSYCH; patient sedated on the vent Assessment & Plan Assessment/Plan (1) Angioedema due to angiotensin converting enzyme inhibitor (LUPE-I): PLAN: Plan Patient is a 39-year-old gentleman presented with significant swelling involving the face and lips after taking lisinopril and assessment of angioedema with impending airway failure made patient electively intubated in the emergency department admitted to the intensive care unit for further management 1. Angioedema ? Secondary to LUPE inhibitors. Patient was intubated in the emergency department as a result of impending airway failure. No offending medications discontinued patient started on H2 blockers as well as Solu-Medrol admitted to the intensive care unit. Initial vent settings written consult placed to maintenance planner?Dr Maguire case discussed with him -12/31/2024; patient remains on the vent. Plan is for patient to be maintained on the vent with steroid and H2 blockers. Decision to initiate weaning deferred to maintenance planner. ? 01/01/2025;Patient seen remains on the vent easily arousable despite patient being on max sedation. ? 01/02/2025; Patient seen remains on the vent. Plan is for patient to be started on his psychotropic medications prior to attempt at weaning. Patient psychotropic medication subsequently ordered ? 01/04/2024;Patient seen, remains on the vent. Patient tracheal aspirates came back positive for Streptococcus agalactiae Chest x-ray obtained due to Dense retrocardiac/left lower lobe airspace opacities present obscuring the contour of the left hemidiaphragm. Patient was started on cefazolin by telemetry ICU. 2. Essential hypertension ? Patient was on lisinopril discontinued given the above 3. Schizoaffective disorder ? Plan is to resume patient psychotropic medications once weaned off the vent 4. Class III obesity with BMI of 43.1 complicating care 5. Diabetes mellitus type 2 ? Held patient oral hypoglycemic agents patient is on long-acting insulin. Plan is to continue with sliding scale coverage following med reconciliation 6. Mild intermittent asthma ? Not in exacerbation aerosol treatment as needed 7. Hypothyroidism ? Patient is on levothyroxine home dose continued 8. Anemia ? Secondary to chronic disorder monitoring H&H and transfuse if patient becomes symptomatic or hemoglobin falls below 7 9. Mild hyponatremia ? Monitoring with daily BMPs ? 01/01/2025; sodium levels up to 132 10. DVT prophylaxis ? On enoxaparin Time spent in the patient's overall evaluation,decision-making process, review of diagnostic data, adjustment of management, discussion with other providers, nursing nursing and ancillary staff involved in patient's care documentation, 38 minutes Charges/Coding Visit Charges Inpatient E&M: 14793 Subs Hosp L2
[2025-01-03] MEDS: CHLORHEXIDINE GLUC 2% CLOTH 1 EACH TOWELETTE TOPICAL (07:51)
[2025-01-03] MEDS: Chlorhexidine 15 ML PO ×2 (07:51→21:26)
[2025-01-03] MEDS: Propofol 10MG/Ml 1,000 MG/100 ML Bottle 27.3 MG CONT INF (07:52)
[2025-01-03] MEDS: Benztropine Mesylate 0.5 MG TABLET NG (08:36)
[2025-01-03] MEDS: Enoxaparin 40 MG/0.4 ML Syringe SC ×2 (08:36→21:25)
[2025-01-03] MEDS: Famotidine 200 MG/20 ML MDV 20 MG in 0.9% Normal Saline (Pres. free 8 ML 330 MG IV ×2 (08:37→21:24)
[2025-01-03] MEDS: MEDROXYPROGESTERONE ACETATE 10 MG TABLET NG (08:37)
[2025-01-03] MEDS: OXcarbazepine 300 MG Tablet GT ×2 (08:38→21:27)
--- NOTE | 2025-01-03 09:12 | PCM.PN.TICU ---
Objective Data Objective Data Vital Signs: Vital Signs Last response Temperature 36.9 C 01/03/25 09:00 Temperature Source Core 01/03/25 09:00 Pulse Rate 67 01/03/25 09:00 Pulse Strength Normal (2+) 01/03/25 08:21 Respiratory Rate 14 01/03/25 09:00 Respiratory Effort Mechanically Ventilated 01/03/25 07:27 Respiratory Depth Normal 01/03/25 07:27 Respiratory Pattern Normal 01/03/25 07:27 Blood Pressure 101/68 01/03/25 09:00 Blood Pressure Mean 79 01/03/25 09:00 Blood Pressure Source Monitor 01/03/25 09:00 Blood Pressure Position Semi-Fowlers 01/03/25 09:00 Blood Pressure Location Left Arm 01/03/25 09:00 Pulse Ox 95 01/03/25 09:00 Oxygen Delivery Method Mechanical Ventilator 01/03/25 09:00 Fraction of Inspired Oxygen (FIO2) 25 01/03/25 08:00 I&O: I&O Last 24 Hours 01/02/25 01/02/25 01/03/25 11:59 23:59 11:59 Intake Total 734.75 / 2875.69 2096.03 / 2875.69 1040.03 / 1040.03 Output Total 1200 / 2275 1075 / 2275 650 / 650 Balance -465.25 / 600.69 1021.03 / 600.69 390.03 / 390.03 I&O: Total Stay 12/30/24 10:16 thru 01/03/25 09:00 Intake Total 9873.62 Output Total 8620 Balance 1253.62 Current Meds Ordered / Administered: Current meds ordered / Administered Generic Name Dose Route Start Last Admin Trade Name Freq PRN Reason Stop Dose Admin Acetylcysteine 800 mg 01/02/25 10:30 01/03/25 06:44 Acetylcysteine 800 Mg/4 Ml Vial.Neb. INHALATION 800 mg Q6H.RT SHAHID Administration Albuterol Sulfate 2.5 mg 12/30/24 12:43 12/31/24 13:02 Albuterol 2.5 Mg/3 Ml Vial.Neb. INHALATION 2.5 mg Q2H PRN PRN Administration DYSPNEA/WHEEZING/SOB Albuterol Sulfate 2.5 mg 01/02/25 10:30 01/03/25 06:44 Albuterol 2.5 Mg/3 Ml Vial.Neb. INHALATION 2.5 mg Q6H.RT SHAHID Administration Benztropine Mesylate 0.5 mg 01/03/25 10:00 01/03/25 08:36 Benztropine Mesylate 0.5 Mg Tablet NG 0.5 mg DAILY SHAHID Administration Chlorhexidine Gluconate 15 ml 12/30/24 22:00 01/03/25 07:51 Chlorhexidine 15 Ml PO 15 ml BID SHAHID Administration Chlorhexidine Gluconate 1 each 01/02/25 10:00 01/03/25 07:51 Chlorhexidine Gluc 2% Cloth 1 Each Towelette TOPICAL 1 each DAILY SHAHID Administration Enoxaparin Sodium 40 mg 12/30/24 22:00 01/03/25 08:36 Enoxaparin 40 Mg/0.4 Ml Syringe SC 40 mg BID SHAHID Administration Glucagon 1 mg 12/30/24 12:43 Glucagon 1 Mg/Ml Syringe IM X1 PRN HYPOGLYCEMIA Protocol Guaifenesin 20 ml 01/02/25 14:00 01/03/25 05:23 Guaifenesin 10 Ml Udc (200mg/10ml) PO 20 ml Q8H SHAHID Administration Haloperidol 10 mg 01/02/25 22:00 01/02/25 21:53 Haloperidol 5 Mg Tablet PO 10 mg QHS SHAHID Administration Fentanyl 100 mls @ 2.5 mls/hr 12/30/24 10:20 01/03/25 09:00 CONT INF 175 mcg/hr UD SHAHID 17.5 mls/hr Titration Protocol 25 MCG/HR Dextrose 250 mls @ 0 mls/hr 12/30/24 12:43 Dextrose 10%-Water IV .Q0M PRN HYPOGLYCEMIA Protocol As Directed Famotidine 20 mg/ Sodium 10 mls @ 300 mls/hr 12/30/24 12:43 01/03/25 08:40 Chloride IV Infused Q12 SHAHID Infusion Sodium Chloride 100 mls @ 15 mls/hr 12/30/24 12:50 IV .Q6H40M PRN Saline Flush Sodium Chloride 100 mls @ 15 mls/hr 12/30/24 12:50 IV .Q6H40M PRN Additional IVPB Infusion Enteral Nutritional Formula 1,000 mls @ 35 mls/hr 12/31/24 11:15 01/03/25 08:01 Vital High Protein GT 35 mls/hr .[id number] SHAHID Infusion Propofol 1,000 mg in 100 mls @ 7.794 mls/hr 01/01/25 08:05 01/03/25 09:00 Diprivan CONT INF 35 mcg/kg/min .Q12H SHAHID 27.3 mls/hr Titration Protocol 10 MCG/KG/MIN Cefazolin Sodium 2 gm/ N/A 20 mls @ 400 mls/hr 01/02/25 14:00 01/03/25 05:26 IV Infused Q8 SHAHID Infusion Valproic Acid 250 mg/ Dextrose 52.5 mls @ 50 mls/hr 01/02/25 22:00 01/03/25 06:28 IV Infused TID SHAHID Infusion Insulin Human Lispro 0 unit 12/30/24 12:43 01/03/25 05:23 Insulin Lispro 100 Unit/Ml Insuln.Pen SC Not Given Q6 [facility] Protocol Levothyroxine Sodium 75 mcg 01/03/25 06:00 01/03/25 05:50 Levothyroxine 75 Mcg Tablet NG 75 mcg DAILY@0600 SHAHID Administration Lorazepam 1 mg 01/02/25 14:00 01/03/25 05:23 Lorazepam 1 Mg Tablet NG 1 mg TID SHAHID Administration Medroxyprogesterone Acetate 10 mg 01/02/25 10:15 01/03/25 08:37 Medroxyprogesterone Acetate 10 Mg Tablet NG 10 mg DAILY SHAHID Administration Methylprednisolone Sodium Succinate 40 mg 01/03/25 22:00 Methylprednisolone Sod Succ 40 Mg/Ml Vial IV Q12 SHAHID Metoclopramide HCl 5 mg 12/31/24 22:00 01/03/25 05:25 Metoclopramide 10 Mg/2 Ml Vial IV 5 mg Q8 SHAHID Administration Olanzapine 7.5 mg 01/02/25 22:00 01/02/25 21:53 Olanzapine 2.5 Mg Tablet PO 7.5 mg QHS SHAHID Administration Oxcarbazepine 300 mg 01/02/25 10:15 01/03/25 08:38 Oxcarbazepine 300 Mg Tablet GT 300 mg BID SHAHID Administration Prochlorperazine Edisylate 5 mg 12/30/24 12:43 Prochlorperazine 10 Mg/2 Ml Vial IV Q4H PRN PRN Breakthrough Nausea/Vomiting Sodium Chloride 10 - 40 ml 12/30/24 12:50 01/03/25 08:38 0.9% Saline Lock 10 Ml Syringe IV 20 ml UD PRN Administration SALINE FLUSH Ziprasidone 20 mg 01/02/25 10:01 Ziprasidone Hcl 20 Mg Capsule PO Q12H PRN agitation Protocol Lab / Micro Data 01/03/25 05:10 01/03/25 05:10 Labs: Laboratory Results - last 24 hr 01/02/25 10:30: Procalcitonin < 0.02, Urine Color Yellow, Urine Clarity Cloudy, Urine pH 7.0, Ur Specific [place] 1.010, Urine Protein 30 H, Urine Glucose (UA) Normal, Urine Ketones Negative, Urine Occult Blood 250 H, Urine Nitrite Positive H, Urine Bilirubin Negative, Urine Urobilinogen Normal, Ur Leukocyte Esterase 500 H, Urine RBC > 100 SEEN, Urine WBC 0-5 SEEN, Ur Squamous Epith Cells 0 SEEN, Urine Bacteria 3+, Urine Mucus 0 SEEN 01/02/25 11:25: POC Glucose 110 H 01/02/25 17:23: POC Glucose 107 H 01/02/25 23:24: POC Glucose 104 01/03/25 05:10: WBC 12.1 H, RBC 3.86 L, Hgb 10.4 L, Hct 31.6 L, MCV 81.9, MCH 26.9 L, MCHC 32.9, RDW Std Deviation 46.3 H, RDW Coeff of Jeronimo 15.6 H, Plt Count 442, MPV 8.4, Immature Gran % (Auto) 1.300 H, Neut % (Auto) 70.0, Lymph % (Auto) 19.6, [place] % (Auto) 8.8, Eos % (Auto) 0.1, Baso % (Auto) 0.2, Absolute Neuts (auto) 8.4 H, Absolute Lymphs (auto) 2.36, Nucleated RBC % 0.2, Sodium 132 L, Potassium 4.2, Chloride 98, Carbon Dioxide 20.1 L, Anion Gap 14, BUN 15, Creatinine 0.68 L, Estim Creat Clear Calc 182.55, Est GFR (MDRD) Non-Af 120, BUN/Creatinine Ratio 21.4 H, Glucose 110 H, Calcium 9.4 01/03/25 05:22: POC Glucose 89 Micro: Microbiology 12/30/24 12:40 Sputum, Induced/Lukens Gram Stain - Final 12/30/24 12:40 Sputum, Induced/Lukens Respiratory Culture - Preliminary Streptococcus agalactiae (B) ABG Data ABG results: ABG 01/03/25 05:05 Specimen Type ART Sample Site R Radial pH 7.32 L Bicarbonate Actual 26.0 Total CO2 28 Base Excess 0 O2 Saturation 96 O2 % 25.0 ABG pCO2 50.2 H ABG pO2 87 Cisco Test Positive Respiration Rate 14 O2 Delivery Device Adult Vent Vent Mode AC Tidal Volume 500.0 POC PEEP 5 Rhythm Strip Rhythm Strip: Sinus Tach Rate: 128 Ectopy: None Imaging Radiology Impression Chest X-Ray 01/03/25 05:20 IMPRESSION: As above. Reading Location: [id number] Assessment and Plan . Assessment and plan: Subjective: No acute events o/n. Still having some thick secretions but improving Physical Exam: Gen - NAD, obese, intubated HEENT - MMM. ETT in place. OP swelling much improved by report Resp - Diminished in bases. Breathing nonlabored CV - RRR. No m/g/r Abd - Soft, NT, ND Ext - No c/c/e. Skin - No rashes? Neuro - Sedated, intubated I have reviewed the pertinent vital sign, laboratory, and imaging data. ASSESSMENT: # Acute hypoxic respiratory failure # LUPE-induced angioedema # PNA - retrocardiac # Possible UTI # Asthma # Schizoaffective disorder # DM # HTN # Hyponatremia # Hypothyroidism # Morbid obesity PLAN: -Adjusted VC vent 500/16/5/35%. Follow ABG/CXR -Hold off on extubation attempt today given secretions and also no anesthesia backup reportedly available over the wknd. Can pursue SBT/extubation attempt hopefully tmrw -IV steroids, pepcid. Angioedema seems to be improving, cuff leak present. -Cont IV cefazolin for now given MSSA nasal PCR positive and sputum positive for strep agalactiae. f/u final Cx results. Procal low -Added nebs/mucomyst, CPT, mucinex -Monitor Na, check urine Na/osm. Reduce free water flushes in TF. May need further workup if not improving -Cont home psych meds -SSI, monitor CBGs FEN/GI: TF Proph DVT/GI: Lovenox, pepcid Critical Care Time: 50 mins The entirety of this encounter was done via telemedicine using both audio and video. Consent was unable to be obtained for the telemedicine encounter due to the patient's mental status.
[2025-01-03] MEDS: dexMEDEtomidine 400 MCG in 0.9% Normal Saline (100mL Bag) 96 ML 16.3 MCG CONT INF (10:30)
[2025-01-03] MEDS: Senna/Docusate Sodium 1 Tablet GT ×2 (10:36→21:27)
[2025-01-03 10:50] LABS: Osmolality, Urine 421 mOsm/KG
[2025-01-03 10:54] LABS: Urine Sodium 71 mmol/L (Not Establ.)
[2025-01-03 12:03] LABS: Bedside Glucose 121 mg/dL (74-106)
[2025-01-03] MEDS: Propofol 10MG/Ml 1,000 MG/100 ML Bottle 15.6 MG CONT INF (12:12)
[2025-01-03] MEDS: guaiFENesin 10 ML UDC (200MG/10ML) 20 ML GT ×2 (13:16→21:24)
[2025-01-03] MEDS: dexMEDEtomidine 400 MCG in 0.9% Normal Saline (100mL Bag) 96 ML 13 MCG CONT INF (15:53)
[2025-01-03 17:16] LABS: Bedside Glucose 110 mg/dL (74-106)
[2025-01-03] MEDS: Polyethylene Glycol 3350 17 GM PACKET GT (17:42)
[2025-01-03] MEDS: fentaNYL drip 100 ML 12.5 MCG CONT INF (18:30)
[2025-01-03] MEDS: Methylprednisolone Sod Succ 40 MG/ML VIAL IV (21:24)
[2025-01-03] MEDS: OLANZapine 2.5 MG Tablet 7.5 MG GT (21:27)
[2025-01-03] MEDS: Haloperidol 5 MG Tablet 10 MG GT (21:27)
[2025-01-03] MEDS: dexMEDEtomidine 400 MCG in 0.9% Normal Saline (100mL Bag) 96 ML 19.5 MCG CONT INF (22:10)
[2025-01-04] VITALS (31 sets, daily range): BP systolic 104–140; BP diastolic 69–94; PULSE 64–103; RESP 13–31; TEMP 36.5–37.6; O2SAT 92–99; BMI 44.7
[2025-01-04 00:05] LABS: Bedside Glucose 120 mg/dL (74-106)
[2025-01-04] MEDS: Albuterol 2.5 MG/3 ML VIAL.NEB. INHALATION ×2 (01:37→06:52)
[2025-01-04] MEDS: Acetylcysteine 800 MG/4 ML VIAL.NEB. INHALATION ×2 (01:38→06:52)
[2025-01-04] MEDS: fentaNYL drip 100 ML 12.5 MCG CONT INF (02:30)
[2025-01-04] MEDS: dexMEDEtomidine 400 MCG in 0.9% Normal Saline (100mL Bag) 96 ML 19.5 MCG CONT INF (03:18)
[2025-01-04] MEDS: CHLORHEXIDINE GLUC 2% CLOTH 1 EACH TOWELETTE TOPICAL (03:44)
[2025-01-04] MEDS: Cefazolin 2 GM in Syringe IV ×3 (05:04→23:26)
[2025-01-04] MEDS: Valproate Sodium 250 MG in Dextrose 5%-Water (50mL Bag) 50 ML 50 MG IV ×3 (05:04→23:26)
[2025-01-04] MEDS: LORazepam 1 MG Tablet NG (05:04)
[2025-01-04] MEDS: Levothyroxine 75 MCG Tablet NG (05:04)
[2025-01-04] MEDS: guaiFENesin 10 ML UDC (200MG/10ML) 20 ML GT (05:04)
[2025-01-04] MEDS: Metoclopramide 10 MG/2 ML Vial 5 MG IV (05:04)
[2025-01-04] MEDS: 0.9% Saline Lock 10 ML Syringe IV ×2 (05:05→23:27)
[2025-01-04 05:21] LABS: Basophil# 0.04 X10^3/uL; Basophil% 0.4 % (0-1); Eosinophil# 0.02 X10^3/uL; Eosinophils% 0.2 % (0-5); Hematocrit 31.1 % (40-54); Hemoglobin 10.4 g/dL (13.0-16.5); Lymphocyte % 18.8 % (19-41); Mean Corp Hgb Conc 33.4 g/dL (32-36); Mean Corpuscular Hgb 26.9 pg (27.0-32.0); Mean Corpuscular Volume 80.4 fL (80-94); Mean Platelet Vol. 8.4 fl (6.2-12.0); Monocyte# 0.89 X10^3/uL; NRBC Flagged by Analyzer 0 % (0-5); Neutrophil # 7.95 X10^3/uL (2.7-7.7); Neutrophil % 71.3 % (47-70); Platelet Count 435 K/mm3 (150-450); RBC Distribution Width CV 15.6 % (11.6-14.6); Red Blood Count 3.87 M/mm3 (4.6-6.2); White Blood Count 11.2 K/mm3 (4.4-11.0)
[2025-01-04 05:27] LABS: Bedside Glucose 105 mg/dL (74-106)
[2025-01-04 05:45] LABS: Anion Gap 14 (5-15); BUN 17 mg/dL (4-19); BUN/Creat Ratio 22.2 RATIO (10-20); Calcium,Total 9.2 mg/dL (7.6-11.0); Carbon Dioxide 20.6 mmol/L (21.0-32.0); Chloride 101 mmol/L (98-108); Creatinine, Serum 0.75 mg/dL (0.70-1.20); EST Glomerular Filtration Rate 116 (>60); Glucose 110 mg/dL (70-99); Potassium 4.4 mmol/L (3.3-5.1); Sodium Level 135 mmol/L (133-145)
[2025-01-04 07:14] LABS: Allen Test Positive; Base Excess -1 mmol/L (-2 to +2); Bicarbonate 22.5 mmol/L (22-26); Blood Gas Specimen Type ART; Mode AC; O2 Delivery Device Adult Vent; PEEP 5; PO2 63 mmHG (75-100); RR 16; SITE R Radial; SO2 94 % (95-99); Total Carbon Dioxide 23 mmol/L
[2025-01-04] MEDS: Methylprednisolone Sod Succ 40 MG/ML VIAL IV (07:19)
--- NOTE | 2025-01-04 07:19 | PCM.PN.HOSP ---
Reason for Visit Reason for Visit: Diagnoses Adverse effect of gksnararvho-tzdfgzotdl-tjvwaf inhibitors, initial encounter (12/30/24) Angioneurotic edema, initial encounter (12/30/24) Subjective Subjective Extubated this AM. Requests a bath. Feels like his eyes are going to pop out. Objective Data Objective Data Vital Signs: Vital Signs Temp Pulse Resp BP Pulse Ox O2 Del Method FiO2 37.6 C H 80 16 104/71 93 Mechanical Ventilator 01/04/25 04:00 01/04/25 07:00 01/04/25 07:00 01/04/25 07:00 01/04/25 07:00 01/04/25 07:00 01/04/25 07:00 Oxygen Delivery Method Mechanical Ventilator Weight: 127.8 kg Body Mass Index (BMI) 44.7 Intake & Output: Intake and Output for Last 24 Hours 01/02/25 01/03/25 01/04/25 23:59 23:59 23:59 Intake Total 2830.78 / 2875.69 2171.52 / 2303.52 829.65 / 829.65 Output Total 2275 / 2275 2900 / 2900 1100 / 1100 Balance 555.78 / 600.69 -728.48 / -596.48 -270.35 / -270.35 Lab / Micro Data 01/04/25 05:00 01/04/25 05:00 Labs: Laboratory Results - last 24 hr 01/03/25 10:30: Urine Osmolality 421, Ur Random Sodium 71 01/03/25 11:41: POC Glucose 121 H 01/03/25 16:56: POC Glucose 110 H 01/03/25 23:44: POC Glucose 120 H 01/04/25 05:00: WBC 11.2 H, RBC 3.87 L, Hgb 10.4 L, Hct 31.1 L, MCV 80.4, MCH 26.9 L, MCHC 33.4, RDW Std Deviation 45.0 H, RDW Coeff of Jeronimo 15.6 H, Plt Count 435, MPV 8.4, Immature Gran % (Auto) 1.300 H, Neut % (Auto) 71.3 H, Lymph % (Auto) 18.8 L, Sargent % (Auto) 8.0, Eos % (Auto) 0.2, Baso % (Auto) 0.4, Absolute Neuts (auto) 8.0 H, Absolute Lymphs (auto) 2.10, Nucleated RBC % 0, Sodium 135, Potassium 4.4, Chloride 101, Carbon Dioxide 20.6 L, Anion Gap 14, BUN 17, Creatinine 0.75, Estim Creat Clear Calc 163.90, Est GFR (MDRD) Non-Af 116, BUN/Creatinine Ratio 22.2 H, Glucose 110 H, Calcium 9.2 01/04/25 05:04: POC Glucose 105 Micro: Microbiology 12/30/24 12:40 Sputum, Induced/Lukens Gram Stain - Final 12/30/24 12:40 Sputum, Induced/Lukens Respiratory Culture - Final Streptococcus group B 12/30/24 14:40 Wound - Nose Skin and Soft Tissue MRSA/MSSA (PCR - Final Staphylococcus aureus ABG Data ABG results: ABG 01/04/25 07:11 Specimen Type ART Sample Site R Radial pH 7.50 H Bicarbonate Actual 22.5 Total CO2 23 Base Excess -1 O2 Saturation 94 L O2 % 25.0 ABG pCO2 29.0 L ABG pO2 63 L Cisco Test Positive Respiration Rate 16 O2 Delivery Device Adult Vent Vent Mode AC Tidal Volume 500.0 POC PEEP 5 Rhythm Strip Rhythm Strip: Sinus Tach Rate: 128 Ectopy: None Physical Exam Const alert and no apparent distress HEENT head/scalp atraumatic and moist oral mucous membranes HEENT Narrative: no proptosis. Resp normal respiratory effort, no retractions, no use of accessory muscles and clear to auscultation bilaterally Cardio regular rate, regular rhythm, S1 normal heart sound and S2 normal heart sound GI normal to inspection, nondistended, normoactive bowel sounds, soft to palpation, non-tender and non-distended Neuro Sensorium / Orientation: awake and alert Assessment & Plan Assessment/Plan (1) Acute respiratory failure: PLAN: though not hypoxic, there was high concern for airway collapse due to the angioedema and he was intubated in in the on 12/30. Complicated by pneumonia Extubated 01/04. (2) Angioedema due to angiotensin converting enzyme inhibitor (LUPE-I): PLAN: on methylprednisolone and h2b lisinopril held and added to allergy list (3) Pneumonia: PLAN: pneumococcal sputum positive for group G strep. on cefazolin. PLAN: Plan schizoaffective d/o: on valproic acid, ziprasidone, olanzipine, haloperidol Hypothyroidism levothyroxine VTE prophy: LMWH Charges/Coding Visit Charges Inpatient E&M: 64132 Subs Hosp L2
[2025-01-04] MEDS: Senna/Docusate Sodium 1 Tablet GT (07:20)
[2025-01-04] MEDS: MEDROXYPROGESTERONE ACETATE 10 MG TABLET NG (07:20)
[2025-01-04] MEDS: OXcarbazepine 300 MG Tablet GT (07:20)
[2025-01-04] MEDS: Benztropine Mesylate 0.5 MG TABLET NG (07:20)
[2025-01-04] MEDS: Enoxaparin 40 MG/0.4 ML Syringe SC ×2 (07:21→23:27)
[2025-01-04] MEDS: Chlorhexidine 15 ML PO (07:22)
[2025-01-04] MEDS: Polyethylene Glycol 3350 17 GM PACKET GT (07:26)
--- NOTE | 2025-01-04 07:34 | PCM.PN.INT ---
Assessment & Plan Assessment/Plan (1) Angioedema due to angiotensin converting enzyme inhibitor (LUPE-I): PLAN: Plan RECOMMENDATIONS: 1. Proceed with a trial of extubation this morning. 2. Once extubated, wean supplemental oxygen to maintain saturations at or above 90%. 3. Okay to discontinue corticosteroids and Pepcid. 4. Speech therapy evaluation prior to advancement of diet. 5. Continue Lovenox for DVT prophylaxis. 6. Antibiotics to complete 7 days of therapy. 7. Encourage incentive spirometer use and mobilize patient as tolerated. IMPRESSIONS: 1. Acute respiratory failure related to LUPE inhibitor induced angioedema The patient was ultimately intubated in the emergency department over concerns for impending respiratory failure and airway compromise. The patient's oropharyngeal edema improved with supportive care including invasive mechanical ventilatory support, Pepcid and corticosteroids. In addition, sputum culture was found to be positive for Streptococcus. Accordingly, the patient will be continued on antibiotics to complete 7 days of therapy. His angioedema has resolved. The patient passed a spontaneous breathing trial and was subsequently extubated on January 04. Recommend weaning supplemental oxygen to maintain saturations at or above 90%. His corticosteroids and Pepcid will be discontinued. Speech therapy will be consulted to evaluate the patient prior to advancement of diet. 2. History of hypertension/hypothyroidism/diabetes mellitus/asthma/schizoaffective disorder Complicates care, management, recovery and prognosis. Continue sliding scale insulin coverage along with as needed bronchodilator therapy. Physical therapy to evaluate the patient. TIME: 35 minutes of critical care time, independent of procedures, was spent addressing the patient's acute respiratory failure related to LUPE inhibitor induced angioedema, review of all data and collaboration with the care team. Subjective Subjective The patient was seen and examined at the bedside this morning. Events from the last 24 hours have been reviewed. The patient is currently afebrile, hemodynamically stable and maintaining appropriate oxygen saturations on assist-control mode of mechanical ventilation. White blood cell count is stable at 11,000 with a hemoglobin of 10.4 g/dL. Blood gas this morning was notable for a pH of 7.5 with a pCO2 of 29 and PO2 of 63. Chemistry profile was unremarkable. The patient tolerated a spontaneous awakening trial this morning without issue. He subsequently completed a spontaneous breathing trial and was therefore extubated. . Objective Data Objective Data The patient's most recent lab work, culture data and imaging studies have all been personally reviewed. Sputum culture dated December 30 was positive for group B streptococcus. Vital Signs: Vital Signs Temp Pulse Resp BP Pulse Ox O2 Del Method FiO2 99.7 F H 80 16 104/71 93 Mechanical Ventilator 01/04/25 04:00 01/04/25 07:00 01/04/25 07:00 01/04/25 07:00 01/04/25 07:00 01/04/25 07:00 01/04/25 07:00 Oxygen Delivery Method Mechanical Ventilator Weight: 281 lb 12.012 oz Body Mass Index (BMI) 44.7 Intake & Output: Intake and Output for Last 24 Hours 01/02/25 01/03/25 01/04/25 23:59 23:59 23:59 Intake Total 2830.78 / 2875.69 2171.52 / 2303.52 829.65 / 829.65 Output Total 2275 / 2275 2900 / 2900 1100 / 1100 Balance 555.78 / 600.69 -728.48 / -596.48 -270.35 / -270.35 Lab / Micro Data Attestation: I reviewed the patient's lab results. 01/04/25 05:00 01/04/25 05:00 Labs: Laboratory Results - last 24 hr 01/03/25 10:30: Urine Osmolality 421, Ur Random Sodium 71 01/03/25 11:41: POC Glucose 121 H 01/03/25 16:56: POC Glucose 110 H 01/03/25 23:44: POC Glucose 120 H 01/04/25 05:00: WBC 11.2 H, RBC 3.87 L, Hgb 10.4 L, Hct 31.1 L, MCV 80.4, MCH 26.9 L, MCHC 33.4, RDW Std Deviation 45.0 H, RDW Coeff of Jeronimo 15.6 H, Plt Count 435, MPV 8.4, Immature Gran % (Auto) 1.300 H, Neut % (Auto) 71.3 H, Lymph % (Auto) 18.8 L, Vilas % (Auto) 8.0, Eos % (Auto) 0.2, Baso % (Auto) 0.4, Absolute Neuts (auto) 8.0 H, Absolute Lymphs (auto) 2.10, Nucleated RBC % 0, Sodium 135, Potassium 4.4, Chloride 101, Carbon Dioxide 20.6 L, Anion Gap 14, BUN 17, Creatinine 0.75, Estim Creat Clear Calc 163.90, Est GFR (MDRD) Non-Af 116, BUN/Creatinine Ratio 22.2 H, Glucose 110 H, Calcium 9.2 01/04/25 05:04: POC Glucose 105 Micro: Microbiology 12/30/24 12:40 Sputum, Induced/Lukens Gram Stain - Final 12/30/24 12:40 Sputum, Induced/Lukens Respiratory Culture - Final Streptococcus group B 12/30/24 14:40 Wound - Nose Skin and Soft Tissue MRSA/MSSA (PCR - Final Staphylococcus aureus ABG Data ABG results: ABG 01/04/25 07:11 Specimen Type ART Sample Site R Radial pH 7.50 H Bicarbonate Actual 22.5 Total CO2 23 Base Excess -1 O2 Saturation 94 L O2 % 25.0 ABG pCO2 29.0 L ABG pO2 63 L Cisco Test Positive Respiration Rate 16 O2 Delivery Device Adult Vent Vent Mode AC Tidal Volume 500.0 POC PEEP 5 Radiography Diagnostic Testing: Radiology Impression Chest X-Ray 12/30/24 10:20 IMPRESSION: Cardiomegaly with mild congestion. Reading Location: [facility] Rhythm Strip Rhythm Strip: Sinus Tach Rate: 128 Ectopy: None Physical Exam Const Constitutional Narrative: Intubated and mechanically ventilated. Tolerating pressure support trial this morning. HEENT normocephalic and head/scalp atraumatic HEENT Narrative: Previously noted swelling has resolved. Mouth: endotracheal tube in place and OG tube in place Eyes PERRL, EOMs intact bilaterally and conjunctivae normal Neck supple General: trachea midline Chest inspection of chest normal Resp no use of accessory muscles Auscultation: Negative for rales, rhonchi or wheezes Cardio regular rate and regular rhythm GI normal to inspection, nondistended, normoactive bowel sounds Extremity no clubbing, cyanosis or edema Skin no rashes or lesions noted Neuro Neuro Narrative: The patient is alert and able to follow simple commands appropriately. Charges/Coding Procedures Hospitalists Procedures: 90712 Critical Care 1st Hr
--- NOTE | 2025-01-04 09:42 | CASEMGMT ---
Social Work SW participated in ICU rounds, pt was extubated today. It is anticipated pt will be ready for discharge back [place] [facility] [place] this week. SW faxed updates to [facility], will continue to follow. ISRAEL Tian
[2025-01-04 11:48] LABS: Bedside Glucose 109 mg/dL (74-106)
--- NOTE | 2025-01-04 12:52 | CHAPLAIN ---
Type of Pastoral Visit ___ Initial Visit _x__ Follow-up Visit ___ On-call Visit ___ General Patient Visit ___ Spiritual Assessment ___ Family Conference ___ Bereavement ___ Rapid Response ___ Code Blue ___ Other (describe below) Pastoral Care Referral From ___ Patient ___ Family ___ Nurse ___ Physician ___ Digital Business Analyst ___ Receiving And Processing Supervisor _x__ Other (describe below) Sacrament/Intervention _x__ Active listening ___ Anointing ___ Adventist ___ Bereavement ___ Communion _x__ Maddi exploration ___ ___ Life review _x__ Prayer ___ Reconciliation ___ Sacrament of Sick _x__ Supportive presence ___ Wedding ___ Other (describe below) Pastoral Comments patient was extubated this morning and is alert, sitting in a chair; pt is able to respond to questions although with slower reactions; pt speaks of believing God, David; pt affirms that he wants to get well; pt says he loves God and God loves him and God wants us to love others; pt is given time for supportive presence, assurance of good care, and prayers
[2025-01-04] MEDS: LORazepam 1 MG Tablet PO (13:03)
[2025-01-04] MEDS: guaiFENesin 10 ML UDC (200MG/10ML) 20 ML PO (13:03)
[2025-01-04 17:58] LABS: Bedside Glucose 97 mg/dL (74-106)
--- NOTE | 2025-01-04 23:20 | CPS ---
Patient placed on cool aerosol mask for upper airway irritation at this time. Patient was just extubated this morning and RT has observed intermittent stridor this evening. RN called RT to bedside to reassess work of breathing and airway patentcy. Lungs are clear and patient does not seem to be in distress at this time. RN aware of cool aerosol and RT to notify physician of cool aerosol.
[2025-01-05] VITALS (19 sets, daily range): BP systolic 98–137; BP diastolic 71–92; PULSE 89–116; RESP 12–28; TEMP 36.8–37.9; O2SAT 91–99; BMI 44.0
[2025-01-05 03:09] LABS: Allen Test Positive; Base Excess 1 mmol/L (-2 to +2); Bicarbonate 25.3 mmol/L (22-26); Blood Gas Specimen Type ART; Comment cool aerosol 6L 28%; Mode Not entered; O2 Delivery Device AeroMask; PO2 79 mmHG (75-100); SITE R Radial; SO2 96 % (95-99); Total Carbon Dioxide 26 mmol/L; pCO2 36.1 mmHg (35-45); pH 7.45 (7.35-7.45)
[2025-01-05] MEDS: MethylPREDNISolone 125 MG/2 ML Vial IV (03:14)
[2025-01-05] MEDS: DiphenhydrAMINE 50 MG/ML Syringe 25 MG IV (03:14)
[2025-01-05] MEDS: 0.9% Saline Lock 10 ML Syringe IV ×2 (03:14→21:01)
--- NOTE | 2025-01-05 03:36 | NURSING ---
0205- This RN bedside with CLOTH TRIMMER HAND turning patient when pt started coughing and wheezing while on side. pt boosted to top of bed and sat up, oral suction provided. Pt able to cough up yellow, clear secretions but continued wheezing. Oxygen saturations stay in mid 90's, pt tachy. Once pt no longer coughing up sputum, this RN called respiratory to come and assess pt. Once RT called, this RN messaged Dr. Webster @ 0212 to call the unit regarding the patient. 0215- Dr. Webster called unit. Concerns expressed by this RN and patient condition made aware to physician. Pt sounds tight and wheezy in throat, was extubated 04/07 AM after being on vent for 6 days for angioedema. pt having a hard time getting secretions out and RN concerned that he may need looked at. Dr. Webster asked this RN if pt was on solumedrol, solumedrol was dc'd. Dr. Webster states to this RN that this is Dr. caruso's patient and he is the one who extubated him but that he probably would not be taking calls this early. Dr Quintana also states that pt should be on solumedrol so go ahead and give him 125mg solumedrol IV x1 and 25mg Benadryl IV x1 and have respiratory check an ABG. Orders repeated back to by this RN and confirmed. 0230- RT bedside for ABG/ assessment. [facility] RT states she will report ABG to physician 0314- meds verified and ordered solumedrol and benadryl given by this RN. Pt resting in bed, awake at this time
[2025-01-05 05:07] LABS: Bedside Glucose 88 mg/dL (74-106)
[2025-01-05] MEDS: Cefazolin 2 GM in Syringe IV ×3 (06:16→23:12)
[2025-01-05] MEDS: Valproate Sodium 250 MG in Dextrose 5%-Water (50mL Bag) 50 ML 50 MG IV ×3 (06:17→21:09)
[2025-01-05] MEDS: LORazepam 1 MG Tablet PO ×3 (06:19→21:00)
[2025-01-05 06:40] LABS: Bedside Glucose 127 mg/dL (74-106)
--- NOTE | 2025-01-05 07:02 | PN.HOSP_ITS ---
Reason for Visit Reason for Visit: Diagnoses Pneumonia, unspecified organism (12/30/24) Acute respiratory failure, unspecified whether with hypoxia or hypercapnia (12/30/24) Adverse effect of gyegtlqctza-feypokostc-qseoer inhibitors, initial encounter (12/30/24) Angioneurotic edema, initial encounter (12/30/24) Subjective Subjective Feels well. Objective Data Objective Data Vital Signs: Vital Signs Temp Pulse Resp BP Pulse Ox O2 Del Method O2 Flow Rate 37.9 C H 102 H 21 H 119/81 H 94 Nasal Cannula 2 01/05/25 07:00 01/05/25 07:00 01/05/25 07:00 01/05/25 07:00 01/05/25 07:00 01/05/25 07:00 01/05/25 07:00 FiO2 28 01/04/25 21:04 Oxygen Flow Rate (L/min) 2 Oxygen Delivery Method Nasal Cannula Weight: 125.8 kg Body Mass Index (BMI) 44.0 Intake & Output: Intake and Output for Last 24 Hours 01/03/25 01/04/25 01/05/25 23:59 23:59 23:59 Intake Total 2171.52 / 2303.52 1050.92 / 1050.92 72.5 / 72.5 Output Total 2900 / 2900 3125 / 3125 350 / 350 Balance -728.48 / -596.48 -2074.08 / -2074.08 -277.5 / -277.5 Lab / Micro Data 01/05/25 08:25 01/05/25 08:25 Labs: Laboratory Results - last 24 hr 01/04/25 11:30: POC Glucose 109 H 01/04/25 17:15: POC Glucose 97 01/04/25 23:21: POC Glucose 88 01/05/25 06:15: POC Glucose 127 H Micro: Microbiology 01/02/25 10:50 Blood Culture (Wb) - Right Forearm Blood Culture - Preliminary No growth in 48 hours. 01/02/25 10:30 Blood Culture (Wb) - Left Forearm Blood Culture - Preliminary No growth in 48 hours. 12/30/24 12:40 Sputum, Induced/Lukens Gram Stain - Final 12/30/24 12:40 Sputum, Induced/Lukens Respiratory Culture - Final Streptococcus group B 04/02/25 14:40 Wound - Nose Skin and Soft Tissue MRSA/MSSA (PCR - Final Staphylococcus aureus ABG Data ABG results: ABG 01/04/25 01/05/25 07:11 03:05 Specimen Type ART ART Sample Site R Radial R Radial pH 7.50 H 7.45 Bicarbonate Actual 22.5 25.3 Total CO2 23 26 Base Excess -1 1 O2 Saturation 94 L 96 O2 % 25.0 28.0 ABG pCO2 29.0 L 36.1 ABG pO2 63 L 79 Cisco Test Positive Positive Respiration Rate 16 O2 Delivery Device Adult Vent AeroMask Vent Mode AC Not entered Tidal Volume 500.0 POC PEEP 5 Clinical Comments cool aerosol 6L 28% Rhythm Strip Rhythm Strip: Sinus Tach Rate: 128 Ectopy: None Physical Exam Const alert and no apparent distress HEENT head/scalp atraumatic and moist oral mucous membranes Resp normal respiratory effort and no retractions Cardio regular rate, regular rhythm, S1 normal heart sound and S2 normal heart sound GI normal to inspection, nondistended, normoactive bowel sounds, soft to palpation and non-tender Extremity normal to inspection and full ROM Assessment & Plan Assessment/Plan (1) Acute respiratory failure: PLAN: though not hypoxic, there was high concern for airway collapse due to the angioedema and he was intubated in in the on 12/30. Complicated by pneumonia Extubated 01/04. (2) Angioedema due to angiotensin converting enzyme inhibitor (LUPE-I): PLAN: on methylprednisolone and h2b lisinopril held and added to allergy list (3) Pneumonia: PLAN: pneumococcal sputum positive for group G strep. on cefazolin. (4) Dysphagia: PLAN: post-intubation MBS completed. Recommended Minced and moist textures and thin liquids. Continue speech therapy. PLAN: Plan schizoaffective d/o: * on valproic acid, ziprasidone, olanzipine, haloperidol Hypothyroidism * levothyroxine VTE prophy: LMWH Charges/Coding Visit Charges Inpatient E&M: 77921 Subs Hosp L2
--- NOTE | 2025-01-05 07:44 | PCM.PN.INT ---
Assessment & Plan Assessment/Plan (1) Angioedema due to angiotensin converting enzyme inhibitor (LUPE-I): PLAN: Plan RECOMMENDATIONS: 1. Continue to wean supplemental oxygen to maintain saturations at or above 90%. 2. Dietary advancement per speech therapy recommendations. 3. Continue antimicrobials as ordered. 4. Continue Lovenox for DVT prophylaxis. 5. Encourage incentive spirometer use and mobilize patient as tolerated. 6. The patient is medically stable for transfer out of the intensive care unit. IMPRESSIONS: 1. Acute respiratory failure related to LUPE inhibitor induced angioedema The patient was ultimately intubated in the emergency department over concerns for impending respiratory failure and airway compromise. The patient's oropharyngeal edema improved with supportive care including invasive mechanical ventilatory support, Pepcid and corticosteroids. In addition, sputum culture was found to be positive for Streptococcus. Accordingly, the patient will be continued on antibiotics to complete 7 days of therapy. The patient's angioedema subsequently resolved and he was able to be extubated on January 04. Recommend weaning supplemental oxygen to maintain saturations at or above 90%. The patient's diet will be advanced per speech therapy recommendations. 2. History of hypertension/hypothyroidism/diabetes mellitus/asthma/schizoaffective disorder Complicates care, management, recovery and prognosis. Continue sliding scale insulin coverage along with as needed bronchodilator therapy. Physical therapy to work with the patient. This note was generated with [employer] dictation software. It may contain incorrect words, spelling, and punctuation that were not noted in checking the note before signing. Subjective Subjective The patient was seen and examined at the bedside this morning. Events from the last 24 hours have been reviewed. The patient currently has a low-grade fever but remains otherwise hemodynamically stable on 2 L/min via nasal cannula. He has done well from a respiratory perspective following extubation yesterday. White blood cell count was noted to be 14,000 this morning with a hemoglobin of 11.3 g/dL. Creatinine is within normal limits. Objective Data Objective Data The patient's most recent lab work, culture data and imaging studies have all been personally reviewed. Sputum culture dated December 30 was positive for group B streptococcus. Vital Signs: Vital Signs Temp Pulse Resp BP Pulse Ox O2 Del Method O2 Flow Rate 100.3 F H 102 H 21 H 119/81 H 94 Nasal Cannula 2 01/05/25 07:00 01/05/25 07:00 01/05/25 07:00 01/05/25 07:00 01/05/25 07:00 01/05/25 07:00 01/05/25 07:00 FiO2 28 01/04/25 21:04 Oxygen Flow Rate (L/min) 2 Oxygen Delivery Method Nasal Cannula Weight: 277 lb 5.464 oz Body Mass Index (BMI) 44.0 Intake & Output: Intake and Output for Last 24 Hours 01/03/25 01/04/25 01/05/25 23:59 23:59 23:59 Intake Total 2171.52 / 2303.52 1050.92 / 1050.92 125.0 / 125.0 Output Total 2900 / 2900 3125 / 3125 350 / 350 Balance -728.48 / -596.48 -2074.08 / -2074.08 -225.0 / -225.0 Lab / Micro Data Attestation: I reviewed the patient's lab results. 01/05/25 08:25 01/05/25 08:25 Labs: Laboratory Results - last 24 hr 01/04/25 11:30: POC Glucose 109 H 01/04/25 17:15: POC Glucose 97 01/04/25 23:21: POC Glucose 88 01/05/25 06:15: POC Glucose 127 H Micro: Microbiology 01/02/25 10:50 Blood Culture (Wb) - Right Forearm Blood Culture - Preliminary No growth in 48 hours. 01/02/25 10:30 Blood Culture (Wb) - Left Forearm Blood Culture - Preliminary No growth in 48 hours. 12/30/24 12:40 Sputum, Induced/Lukens Gram Stain - Final 12/30/24 12:40 Sputum, Induced/Lukens Respiratory Culture - Final Streptococcus group B 12/30/24 14:40 Wound - Nose Skin and Soft Tissue MRSA/MSSA (PCR - Final Staphylococcus aureus ABG Data ABG results: ABG 01/05/25 03:05 Specimen Type ART Sample Site R Radial pH 7.45 Bicarbonate Actual 25.3 Total CO2 26 Base Excess 1 O2 Saturation 96 O2 % 28.0 ABG pCO2 36.1 ABG pO2 79 Cisco Test Positive O2 Delivery Device AeroMask Vent Mode Not entered Clinical Comments cool aerosol 6L 28% Radiography Diagnostic Testing: Radiology Impression Chest X-Ray 12/30/24 10:20 IMPRESSION: Cardiomegaly with mild congestion. Reading Location: [facility] Rhythm Strip Rhythm Strip: Sinus Tach Rate: 128 Ectopy: None Physical Exam Const alert and no apparent distress General Appearance: cooperative HEENT normocephalic and head/scalp atraumatic Eyes PERRL, EOMs intact bilaterally and conjunctivae normal Neck supple General: trachea midline Chest inspection of chest normal Resp no use of accessory muscles Auscultation: Negative for rales, rhonchi or wheezes Cardio regular rate and regular rhythm GI normal to inspection, nondistended, normoactive bowel sounds Extremity no clubbing, cyanosis or edema Skin no rashes or lesions noted Neuro CN's II-XII intact bilaterally and no focal motor deficits Psych Mood & Affect: flat affect Charges/Coding Visit Charges Inpatient E&M: 11385 Subs Hosp L3
[2025-01-05] MEDS: Albuterol 2.5 MG/3 ML VIAL.NEB. INHALATION ×3 (08:04→19:49)
[2025-01-05] MEDS: Senna/Docusate Sodium 1 Tablet PO ×2 (08:25→21:00)
[2025-01-05] MEDS: Enoxaparin 40 MG/0.4 ML Syringe SC ×2 (08:25→20:59)
[2025-01-05] MEDS: OXcarbazepine 300 MG Tablet PO ×2 (08:25→21:00)
[2025-01-05] MEDS: MEDROXYPROGESTERONE ACETATE 10 MG TABLET PO (08:26)
[2025-01-05] MEDS: OLANZapine 2.5 MG Tablet 7.5 MG PO (08:26)
[2025-01-05] MEDS: Benztropine Mesylate 0.5 MG TABLET PO (08:26)
[2025-01-05] MEDS: CHLORHEXIDINE GLUC 2% CLOTH 1 EACH TOWELETTE TOPICAL (08:27)
[2025-01-05 09:11] LABS: Absolute Lymphocyte Count 2.38 X10^3/uL (0.83-4.51); Absolute Neutrophil Count 11.3 X10^3/uL (2.0-7.7); Basophil# 0.04 X10^3/uL; Basophil% 0.3 % (0-1); Eosinophil# 0.01 X10^3/uL; Eosinophils% 0.1 % (0-5); Hemoglobin 11.3 g/dL (13.0-16.5); Lymphocyte # 2.38 X10^3/ul (0.83-4.51); Lymphocyte % 16.4 % (19-41); Mean Corp Hgb Conc 33.2 g/dL (32-36); Mean Corpuscular Hgb 26.8 pg (27.0-32.0); Mean Corpuscular Volume 80.6 fL (80-94); Mean Platelet Vol. 8.7 fl (6.2-12.0); Monocyte% 4.1 % (0-10); NRBC Flagged by Analyzer 0 % (0-5); Neutrophil % 77.6 % (47-70); Platelet Count 482 K/mm3 (150-450); RBC Distribution Width CV 15.6 % (11.6-14.6); Red Blood Count 4.22 M/mm3 (4.6-6.2); White Blood Count 14.6 K/mm3 (4.4-11.0)
[2025-01-05 09:13] LABS: Anion Gap 16 (5-15); BUN 16 mg/dL (4-19); BUN/Creat Ratio 26.2 RATIO (10-20); Calcium,Total 9.8 mg/dL (7.6-11.0); Carbon Dioxide 21.3 mmol/L (21.0-32.0); Chloride 103 mmol/L (98-108); Creatinine, Serum 0.59 mg/dL (0.70-1.20); EST Glomerular Filtration Rate 125 (>60); Estimated Creatinine Clearance 206.48 ml/min (50-250); Glucose 125 mg/dL (70-99); Potassium 4.2 mmol/L (3.3-5.1); Sodium Level 140 mmol/L (133-145)
--- NOTE | 2025-01-05 13:11 | SP.MBSS_ITS ---
Modified Barium Swallow Patient Information Study Date: 01/05/25 Study Time: 12:30 Direct Billable Minutes: 90 Total Minutes procedure & reportin Diagnosis: Angioedema d/t LUPE inhibitor; dysphagia Referring Physician: Dustin Maguire Medical History: Pt is a 39 year old male who presented to the ED from an ECF on 12/30/24 d/t Angioedema due to angiotensin converting enzyme inhibitor (LUPE-I) which necessitated intubation 12/30/24, extubated 01/04/25. Past medical history is significant for Schizoaffective disorder, bipolar type; Conduct disorder; Mood disorder; Major depressive disorder; Schizophrenia; Dementia; Vitamin D deficiency; Impulse disorder; Intermittent explosive disorder; Hyperprolactinemia; Hyperlipidemia; GERD with stricture without esophagitis; Anemia; Hypertension; Asthma; Dysphagia; Hypothyroidism; Irritable bowel; Elevated blood pressure reading with diagnosis of hypertension; Type 2 diabetes mellitus without complication. ? Clinical Bedside Swallow Evaluation completed 01/04/25 - Pt presented w/ multiple swallows (3-5 per bolus). Reports sensation of tickling in his throat w/ PO intake. Intermittent post prandial coughing and belching appreciated w/ obvious difficulty coordinating respiration and deglutition. Post prandial expiratory wheezing appreciated w/ coughing intermittently for several minutes after PO trials concluded. MBSS was recommended to objectively assess swallow function prior to diet advancement. Dentition: Natural Teeth Mental Status: WNL (able to follow commands to sufficiently participate in MBSS) Respiratory Status: Oxygenating on Room Air Penetration-Aspiration Scale Penetration-Aspiration Scale: OBJECTIVE ASSESSMENT OF SWALLOW FUNCTION (QUANTITATIVE ? PER TRIAL): PENETRATION / ASPIRATION SCALE (ROBIN): 1 = does not enter airway 2 = enters airway/above vocal folds/ejected 3 = enters airway/above vocal folds/not ejected 4 = enters airway/contacts vocal folds/ejected 5 = enters airway/contacts vocal folds/not ejected 6 = enters airway/below vocal folds/ejected 7 = enters airway/below vocal folds/not ejected despite effort 8 = enters airway/below vocal folds/no effort VIDEOFLOROSCOPIC SCALE SCORE (ROBIN): Grade I = aspiration of material that has penetrated into the laryngeal vestibule, intact cough reflex Grade II = aspiration < 10 % of the bolus, intact cough reflex Grade III = aspiration of < 10 % of the bolus, reduced cough reflex or aspiration of > 10 % of the bolus, intact cough reflex Grade IV = aspiration of > 10 % of the bolus, reduced cough reflex Penetration-Aspiration Scale Score Thin Liquid via teaspoon: Result: 1= does not enter airway Thin Liquid via teaspoon Trial 2: Result: 1= does not enter airway Thin Liquid via small single sip: cup: Result: 1= does not enter airway Thin Liquid via sequential sips: cup: Result: 2= enter airway/above vocal folds/ejected Thin Liquid via single sip: straw: Result: 3= enters airways/above vocal folds/not ejected Burchard Thick Liquid via small single sip: cup: Result: 1= does not enter airway Pudding: Result: 1= does not enter airway Cookie: Result: 1= does not enter airway Oral Phase Labial Seal: Escape progressing to mid-chin Tongue Control During Bolus Hold: Cohesive bolus between tongue to palatal seal Bolus Preparation/Mastication: Slow prolonged chewing/mashing with complete recollection Bolus Transport/Lingual Motion: Repetitive/disorganized tongue motion Oral Residue: Trace residue lining oral structures Pharyngeal Phase Initiation of Pharyngeal Swallow: Bolus head in valleculae Soft Palate Elevation: No bolus between soft palate and pharyngeal wall Laryngeal Elevation: Comp. Superior move thyroid cart w/comp. apprx arytenoid cart-epig pet Anterior Hyoid Excursion: Partial anterior movement Epiglottic Movement: Complete inversion Laryngeal Vestibule Closure at Height of Swallow: Complete; no air/contrast in laryngeal vestibule Pharyngeal Stripping Wave: Present - complete Pharyngoesophageal Segment Opening: Complete distension and complete duration; no obstruction of flow Tongue Base Retraction: Trace column of contrast between tongue base & post. pharyngeal wall Pharyngeal Residue: Trace residue within or on pharyngeal structures Esophageal Phase Esophageal Clearance: Complete clearance (limited esophageal view d/t body habitus and positioning limitations) Diagnosis/Impression Diagnosis: mild oropharyngeal dysphagia Impression: The oral phase is marked by... * UE weakness limited ability to self-feed, requiring hand over hand assist to steady cups * reduced labial seal w/ anterior bolus leakage appreciated when fed via tsp by STAFF INTERPRETER * slow prolonged mastication w/ repetitive/disorganized lingual motion for A-P bolus transportation The pharyngeal phase is marked by... * swallow onset w/ leading bolus edge in the valleculae * transient penetration w/ thin via large/sequential swallows * penetration above the vocal folds 1x w/ thin via straw w/ trace/scant amount of contrast remaining along the anterior wall of the laryngeal vestibule * cued cough and reswallow was effective to eject trace penetrated contrast The esophageal phase is marked by... * limited esophageal view d/t patient's body habitus and positioning limitations Recommendations Diet: Minced and Moist Textures and Thin Liquids Compensatory Strategies: Small Bites, Small Sips, No Straws and Sitting upright Supervision: Assist as needed (assist w/ self-feeding d/t UE weakness) Recommend Repeat Modified Barium Swallow: No Need for Skilled Speech Therapy Services: Yes Comment: ST to instruct re: diet recommendation, compensatory strategy use and to implement oropharyngeal strengthening as able pending ability to comprehen d/participate Education Completed: 1. Described result of evaluation. and 2. Pt understands evaluation & agrees with goals and treatment plan. Comment: TC placed to Bhanu FERRARO to discuss results/recommendations following MBSS completion Status Active ST Patient: Active Contact Information [facility] Speech Therapy:: Shana Rod M.A. STAFF INTERPRETER Speech-Language Pathologist [facility] [address]a [place], [place] [id number] [email or web address]
--- NOTE | 2025-01-05 13:49 | CHAPLAIN ---
Type of Pastoral Visit ___ Initial Visit _x__ Follow-up Visit ___ On-call Visit ___ General Patient Visit ___ Spiritual Assessment ___ Family Conference ___ Bereavement ___ Rapid Response ___ Code Blue ___ Other (describe below) Pastoral Care Referral From _x__ Patient ___ Family ___ Nurse ___ Physician ___ Pony Cylinder Press Operator ___ Human Resources Psychologist ___ Other (describe below) Sacrament/Intervention _x__ Active listening ___ Anointing ___ Orthodoxy ___ Bereavement ___ Communion ___ Maddi exploration ___ ___ Life review _x__ Prayer ___ Reconciliation ___ Sacrament of Sick _x__ Supportive presence ___ Wedding ___ Other (describe below) Pastoral Comments scenario and speech is about the same as yesterday; pt answers questions with limited words; pt says that he is good; pt agrees to a prayer;
[2025-01-05 17:30] LABS: Bedside Glucose 84 mg/dL (74-106)
[2025-01-05] MEDS: Haloperidol 5 MG Tablet 10 MG PO (21:00)
[2025-01-05] MEDS: 0.9% Normal Saline (100mL Bag) 100 ML 15 ML IV (21:01)
[2025-01-05 23:38] LABS: Bedside Glucose 101 mg/dL (74-106)
[2025-01-06] VITALS (11 sets, daily range): BP systolic 114–130; BP diastolic 71–85; PULSE 75–107; RESP 16–24; TEMP 36.4–37.4; O2SAT 92–97; BMI 43.9; BMI 44.0
[2025-01-06] MEDS: Albuterol 2.5 MG/3 ML VIAL.NEB. INHALATION ×3 (00:41→13:18)
[2025-01-06] MEDS: Cefazolin 2 GM in Syringe IV (05:26)
[2025-01-06] MEDS: Valproate Sodium 250 MG in Dextrose 5%-Water (50mL Bag) 50 ML 50 MG IV (05:31)
[2025-01-06] MEDS: LORazepam 1 MG Tablet PO ×2 (05:39→13:16)
[2025-01-06] MEDS: guaiFENesin 10 ML UDC (200MG/10ML) 20 ML PO (05:40)
[2025-01-06] MEDS: Levothyroxine 75 MCG Tablet PO (05:40)
[2025-01-06 07:07] LABS: Bedside Glucose 118 mg/dL (74-106)
--- NOTE | 2025-01-06 07:25 | PN.HOSP_ITS ---
Reason for Visit Reason for Visit: Diagnoses Pneumonia, unspecified organism (12/30/24) Acute respiratory failure, unspecified whether with hypoxia or hypercapnia (12/30/24) Dysphagia, unspecified (12/30/24) Adverse effect of kblzfiutmri-xpsvngannd-gfumlo inhibitors, initial encounter (12/30/24) Angioneurotic edema, initial encounter (12/30/24) Subjective Subjective No events. Feeling well. Breathing well. Objective Data Objective Data Vital Signs: Vital Signs Temp Pulse Resp BP Pulse Ox O2 Del Method O2 Flow Rate 36.4 C L 103 H 16 130/76 H 97 Nasal Cannula 2 01/06/25 03:56 01/06/25 04:00 01/06/25 03:56 01/06/25 03:56 01/06/25 03:56 01/06/25 03:56 01/06/25 03:56 FiO2 28 01/04/25 21:04 Oxygen Flow Rate (L/min) 2 Oxygen Delivery Method Nasal Cannula Weight: 125.8 kg Body Mass Index (BMI) 44.0 Intake & Output: Intake and Output for Last 24 Hours 01/04/25 01/05/25 01/06/25 23:59 23:59 23:59 Intake Total 1050.92 / 1050.92 270.0 / 270.0 120 / 120 Output Total 3125 / 3125 1075 / 1375 800 / 800 Balance -2074.08 / -2074.08 -805.0 / -1105.0 -680 / -680 Lab / Micro Data 01/05/25 08:25 01/05/25 08:25 Labs: Laboratory Results - last 24 hr 01/05/25 08:25: WBC 14.6 H, RBC 4.22 L, Hgb 11.3 L, Hct 34.0 L, MCV 80.6, MCH 26.8 L, MCHC 33.2, RDW Std Deviation 45.0 H, RDW Coeff of Jeronimo 15.6 H, Plt Count 482 H, MPV 8.7, Immature Gran % (Auto) 1.500 H, Neut % (Auto) 77.6 H, Lymph % (Auto) 16.4 L, Martin % (Auto) 4.1, Eos % (Auto) 0.1, Baso % (Auto) 0.3, Absolute Neuts (auto) 11.3 H, Absolute Lymphs (auto) 2.38, Nucleated RBC % 0, Sodium 140, Potassium 4.2, Chloride 103, Carbon Dioxide 21.3, Anion Gap 16 H, BUN 16, C reatinine 0.59 L, Estim Creat Clear Calc 206.48, Est GFR (MDRD) Non-Af 125, B UN/Creatinine Ratio 26.2 H, Glucose 125 H, Calcium 9.8 01/05/25 16:50: POC Glucose 84 01/05/25 23:15: POC Glucose 101 01/06/25 06:44: POC Glucose 118 H Micro: Microbiology 01/02/25 10:50 Blood Culture (Wb) - Right Forearm Blood Culture - Preliminary No growth in 48 hours. 01/02/25 10:30 Blood Culture (Wb) - Left Forearm Blood Culture - Preliminary No growth in 48 hours. 12/30/24 12:40 Sputum, Induced/Lukens Gram Stain - Final 12/30/24 12:40 Sputum, Induced/Lukens Respiratory Culture - Final Streptococcus group B 12/30/24 14:40 Wound - Nose Skin and Soft Tissue MRSA/MSSA (PCR - Final Staphylococcus aureus Rhythm Strip Rhythm Strip: Sinus Tach Rate: 128 Ectopy: None Physical Exam Const alert and no apparent distress HEENT head/scalp atraumatic and moist oral mucous membranes Resp normal respiratory effort, no retractions, no use of accessory muscles and clear to auscultation bilaterally Cardio regular rate, regular rhythm, S1 normal heart sound and S2 normal heart sound GI normal to inspection, nondistended, normoactive bowel sounds, soft to palpation and non-tender Neuro Sensorium / Orientation: awake Assessment & Plan Assessment/Plan (1) Acute respiratory failure: PLAN: though not hypoxic, there was high concern for airway collapse due to the angioedema and he was intubated in in the on 12/30. Complicated by pneumonia Extubated 01/04. (2) Angioedema due to angiotensin converting enzyme inhibitor (LUPE-I): PLAN: lisinopril held and added to allergy list (3) Pneumonia: PLAN: pneumococcal sputum positive for group G strep. on cefazolin. (4) Dysphagia: PLAN: post-intubation MBS completed. Recommended Minced and moist textures and thin liquids. Continue speech therapy. PLAN: Plan schizoaffective d/o: * on valproic acid, ziprasidone, olanzipine, haloperidol Hypothyroidism * levothyroxine VTE prophy: LMWH DC back to [facility]
--- NOTE | 2025-01-06 08:33 | NURSING ---
insp/exp wheezes heard in all lung jenkins at rest on room air pt is 86% pox, at rest on 2l is 93%
[2025-01-06] MEDS: MEDROXYPROGESTERONE ACETATE 10 MG TABLET PO (08:50)
[2025-01-06] MEDS: Enoxaparin 40 MG/0.4 ML Syringe SC (08:51)
[2025-01-06] MEDS: Benztropine Mesylate 0.5 MG TABLET PO (08:51)
[2025-01-06] MEDS: OXcarbazepine 300 MG Tablet PO (08:51)
[2025-01-06] MEDS: Senna/Docusate Sodium 1 Tablet PO (08:52)
--- NOTE | 2025-01-06 09:53 | TREXTCAR_ITS ---
Diet Diet Order/Speech Therapy: 01/05/25 15:07 Diet: Regular - General Food consistency:: Mechanical (Minced/Moist) Liquid Consistency:: Regular/Thin Routine Orders/Code Status Code Status: Full Code DC O2, CPAP, BIPAP needs Home O2 Discharge instructions: Yes Type of respiratory needs?: Oxygen Oxygen frequency: Continuous Continuous oxygen liters per minute: 2 Therapies Weight Bearing: Full weight bearing Physical Therapy: Eval and Treat Occupational Therapy: Eval and Treat Speech Therapy: Eval and Treat Problem/Diagnosis (1) Acute respiratory failure: Status: Acute Code(s): J96.00 - Acute respiratory failure, unspecified whether with hypoxia or hypercapnia Plan: though not hypoxic, there was high concern for airway collapse due to the angioedema and he was intubated in in the on 12/30. Complicated by pneumonia Extubated 01/04. (2) Angioedema due to angiotensin converting enzyme inhibitor (LUPE-I): Status: Acute Code(s): T78.3XXA - Angioneurotic edema, initial encounter; T46.4X5A - Adverse effect of fgnzgrmwlqm-iwzmomdilz-suqqvg inhibitors, initial encounter Plan: lisinopril held and added to allergy list (3) Pneumonia: Status: Acute Code(s): J18.9 - Pneumonia, unspecified organism Plan: pneumococcal sputum positive for group G strep. on cefazolin. (4) Dysphagia: Status: Acute Code(s): R13.10 - Dysphagia, unspecified Plan: post-intubation MBS completed. Recommended Minced and moist textures and thin liquids. Continue speech therapy. Plan schizoaffective d/o: * on valproic acid, ziprasidone, olanzipine, haloperidol Hypothyroidism * levothyroxine VTE prophy: LMWH DC back to [facility] Allergies/Procedures Done in Hospital Allergies LUPE Inhibitors Allergy (Severe, Verified 12/30/24 10:34) Angioedema Patient required intubation Procedures: Intubation Type of Care/Length of Stay Estimated LOS: More Than 30 Days Type of Care Needed: Skilled Nursing/Assisted Living Rehab Potential: Fair Prognosis: Fair Additional Orders/Day of Discharge Day of Discharge: 01/06/25 Dietary and Speech Recommendations Dietitian Recommendations/Changes: As medically able, rec advance diet as t olerated to CHO Control/Cardiac - consistency per TEST AND RESEARCH REACTOR OPERATOR if indicated. Will monitor need for ONS pending po intake as established. Discharge Plan Admission Admit Date/Time: 12/30/24 11:31 Primary Reason for Your Visit: angionedema. pneumonia Attending Provider: Brendon Rosario Primary Care Provider: Neptali Maxwell Consulting Providers: Kurtis Eaton Discharge Orders/Prescriptions Prescriptions: New amoxicillin-pot clavulanate 875-125 mg tablet 1 tab PO Q12H Qty: 8 0RF Continued acetaminophen 325 mg tablet 650 mg PO Q4H PRN (Reason: fever or pain) albuterol sulfate 90 mcg/actuation aerosol powdr breath activated 1 inh inhalation Q6H PRN (Reason: shortness of breath) aspirin 81 mg tablet,chewable 1 tab PO DAILY atorvastatin 40 mg tablet 40 mg PO QHS benztropine 0.5 mg tablet 0.5 mg PO DAILY fluticasone furoate-vilanterol [Breo Ellipta] 100-25 mcg/dose blister with device 1 inh inhalation DAILY calcium carbonate [Calcium 500] 500 mg calcium (1,250 mg) tablet,chewable 1,000 mg PO Q4H PRN (Reason: acid reflux) divalproex [Depakote] 250 mg tablet,delayed release (DR/EC) 250 mg PO TID bisacodyl [Alophen (bisacodyl)] 5 mg tablet,delayed release (DR/EC) 10 mg PO Q12H PRN (Reason: constipation) ziprasidone HCl [Geodon] 20 mg capsule 20 mg PO Q12H PRN (Reason: agitation) Rx Instructions: give with food (meal/snack) glucagon 1 mg/0.2 mL auto-injector 1 mg subcut PRN haloperidol decanoate [Haldol Decanoate] 100 mg/mL solution 200 mg IM DAILY Rx Instructions: INJECT EVERY 21 DAYS haloperidol 10 mg tablet 10 mg PO QHS levothyroxine [Euthyrox] 75 mcg tablet 75 mcg PO DAILY Children's Saline Nasal [place] 0.65 % aerosol,spray 2 spray intranasal Q4H PRN (Reason: nasal congestion) Rx Instructions: while awake Ozempic 2 mg/dose (8 mg/3 mL) pen injector 2 mg subcut QWEEK Rx Instructions: INJECT EVERY SATURDAY medroxyprogesterone [Provera] 10 mg tablet 10 mg PO DAILY sertraline 100 mg tablet 200 mg PO DAILY cimetidine 200 mg tablet 400 mg PO BID Rx Instructions: administer with meals insulin degludec [Tresiba FlexTouch U-200] 200 unit/mL (3 mL) insulin pen 25 unit subcut QHS oxcarbazepine [Trileptal] 150 mg tablet 300 mg PO BID Aplisol 5 tub. unit /0.1 mL solution 0.1 ml intradermal .COMPLEX Rx Instructions: 0.1 mL intradermally EVERY YEAR; cholecalciferol (vitamin D3) 125 mcg (5,000 unit) capsule 125 mcg PO DAILY olanzapine 7.5 mg tablet 7.5 mg PO QHS lorazepam [Ativan] 1 mg tablet 1 mg PO TID 3 Days Qty: 9 0RF Discontinued lorazepam 2 mg/mL solution 1 mg IM Q12H PRN (Reason: agitation) Rx Instructions: do not exceed 8 doses per 24 hrs lorazepam [Ativan] 2 mg tablet 2 mg PO Q12H PRN (Reason: agitation) lisinopril 2.5 mg tablet 2.5 mg PO DAILY metformin 1,000 mg tablet 1,000 mg PO BID Referrals / Follow Up: Neptali Maxwell MD [Primary Care Provider] - Within 2 Weeks NOT,DEFINED [Non-Staff] - Disposition Disposition (needs filled in before D/C Order can be placed): NonSkilled NH/Intermed Care
--- NOTE | 2025-01-06 10:04 | DS.PCM_ITS ---
Providers Date of Admission: 12/30/24 Primary Care Physician: Dr. Neptali Maxwell MD Consultations 12/30/24 12:43 Consult: [employer] / Pulmonary Medicine Routine Consulting Provider: Pulmonary Medicine veronika Russell Reason for Consult: Vent management EMERGENT Consult: No MD Notified: Yes Date Notified: 12/30/24 Time Notified: 11:38 Method of Notification: Text Reason For Visit: ANGIOEDEMA Diagnosis Discharge Diagnosis (1) Acute respiratory failure: Status: Acute Code(s): J96.00 - Acute respiratory failure, unspecified whether with hypoxia or hypercapnia Plan: though not hypoxic, there was high concern for airway collapse due to the angioedema and he was intubated in in the on 12/30. Complicated by pneumonia Extubated 01/04. (2) Angioedema due to angiotensin converting enzyme inhibitor (LUPE-I): Status: Acute Code(s): T78.3XXA - Angioneurotic edema, initial encounter; T46.4X5A - Adverse effect of taxeuoropiw-ilxchfwlbm-icwfbc inhibitors, initial encounter Plan: lisinopril held and added to allergy list (3) Pneumonia: Status: Acute Code(s): J18.9 - Pneumonia, unspecified organism Plan: pneumococcal sputum positive for group G strep. on cefazolin. (4) Dysphagia: Status: Acute Code(s): R13.10 - Dysphagia, unspecified Plan: post-intubation MBS completed. Recommended Minced and moist textures and thin liquids. Continue speech therapy. Plan schizoaffective d/o: * on valproic acid, ziprasidone, olanzipine, haloperidol Hypothyroidism * levothyroxine VTE prophy: LMWH DC back to [facility] Medications at Discharge Home Medications acetaminophen 325 mg tablet 650 mg PO Q4H PRN fever or pain 12/30/24 albuterol sulfate 90 mcg/actuation breath activated powder inhaler 1 inh inhalation Q6H PRN shortness of breath 12/30/24 aspirin 81 mg chewable tablet 1 tab PO DAILY HYPERTENSION 12/30/24 atorvastatin 40 mg tablet 40 mg PO QHS CHOLESTROL 12/30/24 benztropine 0.5 mg tablet 0.5 mg PO DAILY MOVEMENT DISORDER 12/30/24 bisacodyl 5 mg tablet,delayed release (Alophen (bisacodyl)) 10 mg PO Q12H PRN constipation 12/30/24 calcium carbonate (Calcium 500) 1,000 mg PO Q4H PRN acid reflux 12/30/24 cholecalciferol (vitamin D3) 125 mcg (5,000 unit) capsule 125 mcg PO DAILY SUPPLEMENT 12/30/24 cimetidine 200 mg tablet 400 mg PO BID SEXUAL BEHAVIOR 12/30/24 divalproex 250 mg tablet,delayed release (Depakote) 250 mg PO TID MOOD 12/30/24 fluticasone furoate 100 mcg-vilanterol 25 mcg/dose inhalation powder (Breo Ellipta) 1 inh inhalation DAILY ASTHMA 12/30/24 glucagon 1 mg/0.2 mL subcutaneous auto-injector 1 mg subcut PRN HYPOGLYCEMIA 12/30/24 haloperidol 10 mg tablet 10 mg PO QHS SHIZOPHRENIA 12/30/24 haloperidol decanoate 100 mg/mL intramuscular solution (Haldol Decanoate) 200 mg IM DAILY SCHIZOPHRENIA 12/30/24 insulin degludec 200 unit/mL (3 mL) subcutaneous pen (Tresiba FlexTouch U-200 insulin) 25 unit subcut QHS DIABETES 12/30/24 levothyroxine 75 mcg tablet (Euthyrox) 75 mcg PO DAILY HYPOTHYROIDISM 12/30/24 medroxyprogesterone 10 mg tablet (Provera) 10 mg PO DAILY 12/30/24 olanzapine 7.5 mg tablet 7.5 mg PO QHS SCHIZOPHRENIA 12/30/24 oxcarbazepine 150 mg tablet (Trileptal) 300 mg PO BID BIPOLAR 12/30/24 semaglutide 2 mg/dose (8 mg/3 mL) subcutaneous pen injector (Ozempic) 2 mg subcut QWEEK 12/30/24 sertraline 100 mg tablet 200 mg PO DAILY DEPRESSION 12/30/24 sodium chloride 0.65 % nasal spray aerosol (Children's Saline Nasal [place]) 2 spray intranasal Q4H PRN nasal congestion 12/30/24 tuberculin PPD 5 tub. unit/0.1 mL intradermal injection solution (Aplisol) 0.1 ml intradermal .COMPLEX TB 12/30/24 ziprasidone HCl 20 mg capsule (Geodon) 20 mg PO Q12H PRN agitation 12/30/24 amoxicillin 875 mg-potassium clavulanate 125 mg tablet 1 tab PO Q12H #8 tabs 04/09/25 lorazepam 1 mg tablet (Ativan) 1 mg PO TID MOOD 3 days #9 tabs 01/06/25 Hospital Course Operations None Procedures Intubation Summary of Care Provided Minutes Spent on Discharge: 32 Hospital Course: The patient developed angioedema secondary to LUPE inhibitor. Patient was intubated preemptively due to concern for impending airway collapse. Patient was subsequent extubated and did have some dysphagia and was seen by speech therapy recommended regular diet with minced food. Patient was also found to have streptococcal pneumonia and was on cefazolin while he was here and will be discharged with Augmentin upon discharge. Weight / BMI Weight Weight: 125.8 kg Body Mass Index (BMI) 44.0 ABG / Lab / Microbiology Data 01/05/25 08:25 01/05/25 08:25 Laboratory: Laboratory Results - last 24 hr 01/05/25 16:50: POC Glucose 84 01/05/25 23:15: POC Glucose 101 01/06/25 06:44: POC Glucose 118 H Microbiology: Microbiology 01/02/25 10:50 Blood Culture (Wb) - Right Forearm Blood Culture - Preliminary No growth in 48 hours. 01/02/25 10:30 Blood Culture (Wb) - Left Forearm Blood Culture - Preliminary No growth in 48 hours. 12/30/24 12:40 Sputum, Induced/[place]ukens Gram Stain - Final 12/30/24 12:40 Sputum, Induced/[place]ukens Respiratory Culture - Final Streptococcus group B 12/30/24 14:40 Wound - Nose Skin and Soft Tissue MRSA/MSSA (PCR - Final Staphylococcus aureus D/C Instructions DC O2, CPAP, BIPAP Needs Home O2 Discharge instructions: Yes Type of respiratory needs?: Oxygen Oxygen frequency: Continuous Continuous oxygen liters per minute: 2 DC home with Oxygen: Yes Home O2 MD Review: I have reviewed the oxygen testing, and the patient qualifies for home oxygen equipment and portability. The patient is mobile in the home and the community. Meaningful Use Info Meaningful Use Meaningful Use Diagnoses (Choose all that apply): None applicable Ischemic Stroke Statin Dosing Therapy Reference: STATIN DOSE THERAPY REFERENCE: * Patients > 75 years receive moderate or high dose statin therapy. * Patients 75 years or YOUNGER should receive HIGH intensity statin dose unless contraindicated. You will be required to document reason for non-treatment if statin daily dose does not meet guidelines. HIGH DOSE STATIN THERAPY DAILY Atorvastatin > than or = to 40 mg Rosuvastatin > than or = to 20 mg Amlodipine + Atorvastatin > than or = to 2.5/40 mg Ezetimibe + Simvastatin 10/80 mg Simvastatin 80mg Discharge Plan Admission Admit Date/Time: 12/30/24 11:31 Primary Reason for Your Visit: angionedema. pneumonia Attending Provider: Brendon Rosario Primary Care Provider: Neptali Maxwell Consulting Providers: Kurtis Eaton Discharge Orders/Prescriptions Prescriptions: New amoxicillin-pot clavulanate 875-125 mg tablet 1 tab PO Q12H Qty: 8 0RF Continued acetaminophen 325 mg tablet 650 mg PO Q4H PRN (Reason: fever or pain) albuterol sulfate 90 mcg/actuation aerosol powdr breath activated 1 inh inhalation Q6H PRN (Reason: shortness of breath) aspirin 81 mg tablet,chewable 1 tab PO DAILY atorvastatin 40 mg tablet 40 mg PO QHS benztropine 0.5 mg tablet 0.5 mg PO DAILY fluticasone furoate-vilanterol [Breo Ellipta] 100-25 mcg/dose blister with device 1 inh inhalation DAILY calcium carbonate [Calcium 500] 500 mg calcium (1,250 mg) tablet,chewable 1,000 mg PO Q4H PRN (Reason: acid reflux) divalproex [Depakote] 250 mg tablet,delayed release (DR/EC) 250 mg PO TID bisacodyl [Alophen (bisacodyl)] 5 mg tablet,delayed release (DR/EC) 10 mg PO Q12H PRN (Reason: constipation) ziprasidone HCl [Geodon] 20 mg capsule 20 mg PO Q12H PRN (Reason: agitation) Rx Instructions: give with food (meal/snack) glucagon 1 mg/0.2 mL auto-injector 1 mg subcut PRN haloperidol decanoate [Haldol Decanoate] 100 mg/mL solution 200 mg IM DAILY Rx Instructions: INJECT EVERY 21 DAYS haloperidol 10 mg tablet 10 mg PO QHS levothyroxine [Euthyrox] 75 mcg tablet 75 mcg PO DAILY Children's Saline Nasal [place] 0.65 % aerosol,spray 2 spray intranasal Q4H PRN (Reason: nasal congestion) Rx Instructions: while awake Ozempic 2 mg/dose (8 mg/3 mL) pen injector 2 mg subcut QWEEK Rx Instructions: INJECT EVERY SATURDAY medroxyprogesterone [Provera] 10 mg tablet 10 mg PO DAILY sertraline 100 mg tablet 200 mg PO DAILY cimetidine 200 mg tablet 400 mg PO BID Rx Instructions: administer with meals insulin degludec [Tresiba FlexTouch U-200] 200 unit/mL (3 mL) insulin pen 25 unit subcut QHS oxcarbazepine [Trileptal] 150 mg tablet 300 mg PO BID Aplisol 5 tub. unit /0.1 mL solution 0.1 ml intradermal .COMPLEX Rx Instructions: 0.1 mL intradermally EVERY YEAR; cholecalciferol (vitamin D3) 125 mcg (5,000 unit) capsule 125 mcg PO DAILY olanzapine 7.5 mg tablet 7.5 mg PO QHS lorazepam [Ativan] 1 mg tablet 1 mg PO TID 3 Days Qty: 9 0RF Discontinued lorazepam 2 mg/mL solution 1 mg IM Q12H PRN (Reason: agitation) Rx Instructions: do not exceed 8 doses per 24 hrs lorazepam [Ativan] 2 mg tablet 2 mg PO Q12H PRN (Reason: agitation) lisinopril 2.5 mg tablet 2.5 mg PO DAILY metformin 1,000 mg tablet 1,000 mg PO BID Referrals / Follow Up: Neptali Maxwell MD [Primary Care Provider] - Within 2 Weeks NOT,DEFINED [Non-Staff] - Disposition Disposition (needs filled in before D/C Order can be placed): NonSkilled NH/Intermed Care Charges/Coding Visit Charges Inpatient E&M: 93060 Disch Hosp >30min
--- NOTE | 2025-01-06 10:44 | CASEMGMT ---
Discharge Planning Discharge orders, signed med lsit, and transport time faxed to Daryl Russell. Physicians will transport pt by cot at 1:30p. Nursing and SW updated. VM left for pts legal guardian, Dalia Bennett. Isi Valentine DC Planning Asst.
[2025-01-06 11:27] LABS: Bedside Glucose 114 mg/dL (74-106)
--- NOTE | 2025-01-06 13:55 | PHA.DC.MR.R ---
Pharmacy [facility] Med Reconciliation Pharmacy Service has performed discharge medication reconciliation for this patient. The patient's discharge medication list was reviewed for discrepancies and discrepancies were resolved. Medications at Discharge Home Medications acetaminophen 325 mg tablet 650 mg PO Q4H PRN fever or pain 12/30/24 albuterol sulfate 90 mcg/actuation breath activated powder inhaler 1 inh inhalation Q6H PRN shortness of breath 12/30/24 aspirin 81 mg chewable tablet 1 tab PO DAILY HYPERTENSION 12/30/24 atorvastatin 40 mg tablet 40 mg PO QHS CHOLESTROL 12/30/24 benztropine 0.5 mg tablet 0.5 mg PO DAILY MOVEMENT DISORDER 12/30/24 bisacodyl 5 mg tablet,delayed release (Alophen (bisacodyl)) 10 mg PO Q12H PRN constipation 12/30/24 calcium carbonate (Calcium 500) 1,000 mg PO Q4H PRN acid reflux 12/30/24 cholecalciferol (vitamin D3) 125 mcg (5,000 unit) capsule 125 mcg PO DAILY SUPPLEMENT 12/30/24 cimetidine 200 mg tablet 400 mg PO BID SEXUAL BEHAVIOR 12/30/24 divalproex 250 mg tablet,delayed release (Depakote) 250 mg PO TID MOOD 12/30/24 fluticasone furoate 100 mcg-vilanterol 25 mcg/dose inhalation powder (Breo Ellipta) 1 inh inhalation DAILY ASTHMA 12/30/24 glucagon 1 mg/0.2 mL subcutaneous auto-injector 1 mg subcut PRN HYPOGLYCEMIA 12/30/24 haloperidol 10 mg tablet 10 mg PO QHS SHIZOPHRENIA 12/30/24 haloperidol decanoate 100 mg/mL intramuscular solution (Haldol Decanoate) 200 mg IM DAILY SCHIZOPHRENIA 12/30/24 insulin degludec 200 unit/mL (3 mL) subcutaneous pen (Tresiba FlexTouch U-200 insulin) 25 unit subcut QHS DIABETES 12/30/24 levothyroxine 75 mcg tablet (Euthyrox) 75 mcg PO DAILY HYPOTHYROIDISM 12/30/24 medroxyprogesterone 10 mg tablet (Provera) 10 mg PO DAILY 12/30/24 olanzapine 7.5 mg tablet 7.5 mg PO QHS SCHIZOPHRENIA 12/30/24 oxcarbazepine 150 mg tablet (Trileptal) 300 mg PO BID BIPOLAR 12/30/24 semaglutide 2 mg/dose (8 mg/3 mL) subcutaneous pen injector (Ozempic) 2 mg subcut QWEEK 12/30/24 sertraline 100 mg tablet 200 mg PO DAILY DEPRESSION 12/30/24 sodium chloride 0.65 % nasal spray aerosol (Children's Saline Nasal [place]) 2 spray intranasal Q4H PRN nasal congestion 12/30/24 tuberculin PPD 5 tub. unit/0.1 mL intradermal injection solution (Aplisol) 0.1 ml intradermal .COMPLEX TB 12/30/24 ziprasidone HCl 20 mg capsule (Geodon) 20 mg PO Q12H PRN agitation 12/30/24 amoxicillin 875 mg-potassium clavulanate 125 mg tablet 1 tab PO Q12H #8 tabs 01/06/25 lorazepam 1 mg tablet (Ativan) 1 mg PO TID MOOD 3 days #9 tabs 01/06/25
--- NOTE | 2025-01-06 13:57 | NURSING ---
report called to [facility] nurse Kathy report given to ambulance staff here to take pt
--- NOTE | 2025-01-06 16:16 | NURSING ---
All documentation by nursing clerk Jenni Kumar reviewed by [employer] Liseth ERVIN, RN.
== END 2025-01-06 14:14 | disposition intermediate care facility (04) | DRG 207 ==
LOC: ED 11:22 → ICU 11:46 → MS3 01-06 10:03 → ICU 01-06 13:46 → MS3 01-06 13:46
PROVIDERS: Internal Medicine Critical Care Medicine; Internal Medicine Pulmonary Disease; Admitting Provider Internal Medicine; Emergency Provider Emergency Medicine; PCP Family Medicine
DX: J96.00 Acute respiratory failure, unspecified whether with hypoxia or hypercapnia (principal); J13 Pneumonia due to Streptococcus pneumoniae; E87.1 Hypo-osmolality and hyponatremia; Z68.41 Body mass index [BMI] 40.0-44.9, adult; F25.0 Schizoaffective disorder, bipolar type; R13.10 Dysphagia, unspecified; E11.9 Type 2 diabetes mellitus without complications; J45.20 Mild intermittent asthma, uncomplicated; E03.9 Hypothyroidism, unspecified; I10 Essential (primary) hypertension; E78.5 Hyperlipidemia, unspecified; K58.9 Irritable bowel syndrome, unspecified; K21.9 Gastro-esophageal reflux disease without esophagitis; E66.01 Morbid (severe) obesity due to excess calories; T78.3XXA Angioneurotic edema, initial encounter; B95.61 Methicillin susceptible Staphylococcus aureus infection as the cause of diseases classified elsewhere; E66.813 Obesity, class 3; Z79.51 Long term (current) use of inhaled steroids; Z79.891 Long term (current) use of opiate analgesic; T46.4X5A Adverse effect of angiotensin-converting-enzyme inhibitors, initial encounter
CPT/HCPCS: 31500; 31720; 36600; 71045; 74230; 80048; 80053; 80076; 81001; 82550; 82803; 82962; 83605; 83735; 83935; 84100; 84145; 84300; 84478; 85025; 87040; 87070; 87077; 87186; 87205; 87640; 92610; 92611; 93005; 94002; 94003; 94640; 94660; 94667; 94668; 97162; 97166; 97530; 97535; 97802; 99252; 99285; A4216; G0463; J0330